=== PATIENT | female | born 1935 | race Caucasian/White ===

== ENCOUNTER 2016-03-13 15:53 | Inpatient (IN) | payer MEDICARE, OTHER ==
[~2016-03-13] VITALS: Ht 162.6 cm; Wt 82.6 kg
--- NOTE | 2016-03-13 17:22 | ECGEPIP ---
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
--- NOTE | 2016-03-13 17:36 | REP ---
Clinical: Cough. Technique: PA and lateral. Comparison: None. Findings: Diffuse chronic interstitial changes with fibrosis and scarring noted bilaterally. Subtle nodular density in the left mid lung zone cannot be excluded. Underlying atelectasis cannot be excluded. No effusion or pneumothorax. Cardiac silhouette is normal. Surgical clips noted in the middle mediastinum. Skeletal structures intact. Impression: Diffuse chronic-appearing interstitial changes with fibrosis and scarring. Subtle left mid lung opacities. No prior exams for comparison and chest CT should be considered for further investigation. Signed by Marcelino Arnold MD 03/13/2016 05:27 P
[2016-03-13] MEDS ORDERED: ACETAMINOPHEN 325 MG TAB As Ordered ONE (17:51)
[2016-03-13 18:01] LABS: BASO % 0.2 % (0.0-1.0); EOS % 0.4 % (0.0-3.0); LARGE UNSTAINED CELL # 0.3 K/mm3 (0.0-0.4); LARGE UNSTAINED CELL % 3.8 % (0.0-4.0); LYMPH # 0.5 K/mm3 (1.5-4.5); LYMPH % 6.2 % (24.0-44.0); MEAN CORPUSCULAR HEMOGLOBIN 30.7 pg (27.0-33.0); MEAN CORPUSCULAR HGB CONC 34.2 g/dl (32.0-36.5); MEAN CORPUSCULAR VOLUME 89.6 fl (80.0-96.0); MONO # 0.4 K/mm3 (0.0-0.8); MONO % 5.1 % (0.0-5.0); NEUTROPHILS # 6.7 K/mm3 (1.8-7.7); NEUTROPHILS % 84.3 % (36.0-66.0); PLATELET COUNT, AUTOMATED 189 k/mm3 (150-450); RED CELL DISTRIBUTION WIDTH 13.1 % (11.5-14.5); WHITE BLOOD COUNT 7.9 K/mm3 (4.0-10.0)
[2016-03-13] MEDS ORDERED: IPRATROPIUM 0.5MG/ALBUTEROL 2.5MG INH SOL UD 3ML (DUONEB)(J7620) As Ordered ONE (18:02)
[2016-03-13 18:32] LABS: CALCIUM LEVEL 9.2 MG/DL (8.8-10.2); CREATININE FOR GFR 1.41 MG/DL (0.55-1.02); POTASSIUM SERUM 4.1 MEQ/L (3.5-5.1)
[2016-03-13] MEDS ORDERED: ONDANSETRON 4MG/2ML VIAL (J2405) IV PRN (19:30)
[2016-03-13] MEDS ORDERED: ALBUTEROL SULFATE 2.5 MG/0.5 ML INH NEB SOLN NEB PRN (19:30)
[2016-03-13] MEDS ORDERED: ASCO500T PO (19:56)
[2016-03-13] MEDS ORDERED: SPIR1CAP INH (19:56)
[2016-03-13] MEDS ORDERED: cefTRIAXone SOD 1 GM VIAL (J0696) As Ordered ONE (19:56)
[2016-03-13] MEDS ORDERED: VERAP80TA PO (19:56)
[2016-03-13] MEDS ORDERED: PREV10CA PO (19:56)
[2016-03-13] MEDS ORDERED: [UNRECOGNIZED DRUG - CODE] PO (19:56)
[2016-03-13] MEDS ORDERED: SPIR25TA2 PO (19:56)
[2016-03-13] MEDS ORDERED: ALBU83IN INH (19:56)
[2016-03-13] MEDS ORDERED: COUM1TAB17 PO (19:56)
[2016-03-13] MEDS ORDERED: VITA-122 PO (19:56)
[2016-03-13] MEDS ORDERED: GUAI1TAB PO (19:56)
[2016-03-13] MEDS ORDERED: ATEN25TA PO (19:56)
[2016-03-13] MEDS ORDERED: TORS20TA2 PO (19:56)
[2016-03-13] MEDS ORDERED: B COTAB3 PO (19:56)
[2016-03-13] MEDS ORDERED: COUM2.5T11 PO (19:56)
[2016-03-13] MEDS ORDERED: ADV250INH INH (19:56)
[2016-03-13] MEDS ORDERED: VITMTA PO (19:56)
[2016-03-13] MEDS ORDERED: POTA20TA PO (19:56)
[2016-03-13] MEDS ORDERED: FUROSEMIDE 20 MG/2 ML VIAL (J1940) As Ordered ONE (19:57)
[2016-03-13] MEDS ORDERED: methylPREDNISolone INJ 125 MG/2 ML VIAL (J2930) As Ordered ONE (19:57)
[2016-03-13] MEDS ORDERED: OMEP20CA3 PO (19:58)
[2016-03-13] MEDS: IPRATROPIUM 0.5MG/ALBUTEROL 2.5MG INH SOL UD 3ML (DUONEB)(J7620) NEB SCH (20:00)
[2016-03-13] MEDS ORDERED: ACETAMINOPHEN 500 MG TAB PO PRN (20:15)
[2016-03-13 20:40] LABS: ABG DEVICE NASAL CANN; ABG HCO3 23.8 MEQ/L (22.0-26.0); ABG PARTIAL PRESSURE CO2 32.4 mmHg (35.0-45.0); ABG STANDARD HCO3 25.4 MEQ/L (22.0-26.0); ABG TOTAL CO2 24.7 MEQ/L (23.0-31.0); ABG pH (ARTERIAL) 7.483 UNITS (7.350-7.450)
[2016-03-13 20:41] LABS: ABG PARTIAL PRESSURE O2 133.5 mmHg (75.0-100.0)
[2016-03-13] MEDS: ADVAIR DISKUS 250/50 INH PWD INH SCH (21:00)
[2016-03-13] MEDS ORDERED: DOXYCYCLINE HYCLATE 100 MG TAB PO SCH (21:00)
[2016-03-13] MEDS ORDERED: AZITHROMYCIN INJ 500MG VIAL (J0456) As Ordered ONE (21:18)
[2016-03-13] MEDS ORDERED: ONDANSETRON 4MG/2ML VIAL (J2405) As Ordered ONE (21:51)
--- NOTE | 2016-03-13 22:33 | EDDOCDS ---
Physician Documentation [facility] Name: Maude Ward Age: 80 yrs Sex: Female : 1935 Arrival Date: 03/13/2016 Time: 15:53 Bed 18 Private MD: Unknown, Family Dr Disposition: 03/13/16 19:16 Hospitalization ordered by Thu Anderson for Inpatient Admission. Preliminary diagnosis is Chronic obstructive pulmonary disease with acute lower respiratory infection. - [facility] - Status is Inpatient Admission. jp6 - Condition is Stable. - Problem is new. - Symptoms are unchanged. Historical: - Allergies: No known drug Allergies; - Home Meds: 1. Spiriva with HandiHaler 18 mcg Inhl CpDv 1 cap once daily (Last dose: 03/12/2016 17:00) 2. Mucinex 600 mg oral Ta12 2 tabs every 12 hours (Last dose: 03/13/2016 11:00) 3. albuterol sulfate 2.5 mg /3 mL (0.083 %) Nebulizer nebu 4 times per day (Last dose: 03/13/2016 12:00) 4. Advair Diskus 250-50 mcg/dose Inhl dsdv 1 puff 2 times per day (Last dose: 03/13/2016 10:00) 5. atenolol 25 mg Oral tab bedtime (Last dose: 03/12/2016) 6. spironolactone 25 mg Oral tab 1 tab once daily (Last dose: 03/13/2016 11:00) 7. verapamil 80 mg Oral tab 1 tab 3 times per day (Last dose: 03/13/2016 10:00) 8. warfarin 5 mg Oral tab 1 tab once daily everyday but fri and sun 9. warfarin 2.5 mg Oral tab 1 tab once daily fri and sun 10. klor con20 three times a day (Last dose: 03/13/2016 10:00) 11. omeprazole 20 mg Oral cpDR 1 cap 2 times per day (Last dose: 03/13/2016 10:00) 12. torsemide 20 mg oral tab 2 tabs once daily (Last dose: 03/13/2016 10:00) 13. prevagen D 10MG daily (Last dose: 03/13/2016 10:00) - PMHx: afib; Emphysema; RIGHT LUNG CANCER; GERD; - PSHx: RIGHT LOBECTOMY; Cholecystectomy; Tonsillectomy; KNEE REPLACEMENT; - Social history: Smoking status: Patient states former smoker of tobacco. No barriers to communication noted, The patient speaks fluent Luxembour[place], Speaks appropriately for age. - Family history: Not pertinent. - : The pt / caregiver states he / she is on anticoagulants: coumadin. Home medication list is obtained from the patient. - Exposure Risk Screening:: None identified. Vital Signs: 03/13 15:55 BP 143 / 77; Pulse 112; Resp 20 S; Temp 101.0(O); Pulse Ox 95% on R/A; Weight 83.91 kg dd6 / 184.99 lbs (R); Height 5 ft. 4 in. (162.56 cm) (R); 19:03 BP 126 / 62 (auto/); jp6 19:03 Pulse 120 MON; Pulse Ox 96% ; jp6 19:18 BP 122 / 64 (auto/); jp6 19:19 Pulse 122 MON; Pulse Ox 96% ; jp6 19:48 BP 122 / 67 (auto/); jp6 19:48 Pulse 114 MON; Pulse Ox 95% ; jp6 20:03 BP 110 / 58 (auto/); jp6 20:03 Pulse 114 MON; Pulse Ox 96% ; jp6 20:18 BP 131 / 89 (auto/); jp6 20:18 Pulse 120 MON; Pulse Ox 96% ; jp6 20:18 Resp 22; Temp 100.5(O); Pain 0/10; jp6 20:38 Pulse 112 MON; Pulse Ox 95% ; jp6 20:50 Pulse 114 MON; Pulse Ox 96% ; jp6 21:14 Pulse 110 MON; Pulse Ox 97% ; jp6 21:28 Pulse 110 MON; Pulse Ox 96% ; jp6 21:33 BP 122 / 66; Pulse 109; Resp 20; Temp 100.5; Pulse Ox 97% on 2 lpm NC; Pain 0/10; jp6 15:55 Body Mass Index 31.75 (83.91 kg, 162.56 cm) dd6 MDM: 17:03 -Blood Culture (Adults Only), peripheral from different site, or from device/port/PICC sd1 etc. if present ordered. 17:03 Stonecutter Hand/Pulse Ox/q 15 min VS ordered. sd1 17:03 IV Saline Lock ordered. sd1 17:03 Oxygen at 4L/Min NC or Home dosage ordered. sd1 17:03 Rhythm Strip to chart ordered. sd1 17:04 -Blood Culture Ordered. EDMS 17:04 B-Type Natiuretic Peptide Ordered. EDMS 17:04 Basic Metabolic Profile Ordered. EDMS 17:04 CBC with Diff Ordered. EDMS 17:04 Lactic Acid (García tube on ice) Ordered. EDMS 17:05 ECG WITH READING ER PHYS+CARDIAG ordered. EDMS 17:06 -Blood Culture (Adults Only), peripheral from different site, or from device/port/PICC lbd etc. if present complete. 17:06 Chest, 2 View (pa\E\lat) Ordered. EDMS 17:09 BLOOD CULTURES Ordered. EDMS 17:15 Acetaminophen Tablet 650 mg PO once ordered. sd1 17:17 -Influenza A&B Rapid Antigen - Nose Ordered. EDMS 17:44 Albuterol-Ipratropium 3 ml Inhalation once ordered. sd1 17:44 Call Respiratory ordered. sd1 17:45 Call Respiratory complete. lbd 18:15 CBC with Diff Reviewed. sd1 18:15 Chest, 2 View (pa\E\lat) Reviewed. sd1 18:15 EKG-ADULT Reviewed. sd1 18:21 [facility] Agreement was scanned into [employer] and attached to record. gjb 18:21 Financial registration complete. gjb 18:58 B-Type Natiuretic Peptide Reviewed. sd1 18:58 Basic Metabolic Profile Reviewed. sd1 18:58 Lactic Acid (García tube on ice) Reviewed. sd1 18:58 -Influenza A&B Rapid Antigen - Nose Reviewed. sd1 19:04 Solu-MEDROL 125 mg IVP once ordered. sd1 19:04 cefTRIAXone 1 grams IVPB once over 30 mins; dilute in 50mL of NS or D5W ordered. sd1 19:05 azithromycin 500 mg IVPB once over 1 hrs; dilute in 250mL of D5W or NS ordered. sd1 19:05 Misc. Nursing Order ordered. sd1 19:12 Furosemide 20 mg IVP once ordered. sd1 19:13 BED REQUEST+ADM ordered. EDMS 19:15 Call Respiratory ordered. sd1 19:17 -Arterial Blood Gas Ordered. EDMS 19:28 Admission / Observation Status ordered. EDMS 19:28 OTHER CUSTOM DIETS ordered. EDMS 19:32 CBC WITH DIFFERENTIAL Ordered. EDMS 19:33 BASIC METABOLIC PROFILE Ordered. EDMS 19:47 Call Respiratory complete. tmm1 20:15 PROTHROMBIN TIME PROFILE\E\INR Ordered. EDMS Administered Medications: 18:01 Drug: Acetaminophen 650 mg [acetaminophen 325 mg tablet (2 tabs)] Route: PO; jmb 18:05 Drug: Albuterol-Ipratropium 3 ml [ipratropium-albuterol 0.5 mg-3 mg(2.5 mg base)/3 mL [facility] nebulization soln (3 mL)] Route: Inhalation; 20:00 Drug: Solu-MEDROL 125 mg [Solu-Medrol 500 mg intravenous solution (125 mg)] Route: IVP; jp6 Site: left antecubital; 20:00 Drug: cefTRIAXone 1 grams [ceftriaxone 1 gram solution for injection] Route: IVPB; jp6 Infused Over: 30 mins; Site: left antecubital; 20:00 Drug: Furosemide 20 mg [furosemide 10 mg/mL injection solution (2 mL)] Route: IVP; jp6 Site: left antecubital; 21:34 Drug: azithromycin 500 mg [azithromycin 500 mg intravenous solution] Route: IVPB; kas2 Infused Over: 1 hrs; Site: left antecubital; Signatures: Dispatcher [employer] EDHI Kerry Painting MD MD sd1 Daly, Linda, Folding [employer] Fe[employer] lbd Arleth Milligan RN RN [facility] LALITA Ortiz RN daq McLear, Tomasa, HYDROPULPER HYDROPULPER tmm1 Karlene Patel Jessica, RN RN jp6 Hollis, Jacob jh6 Becker, Joshua RN jmb Smith, Kim RN kas2 The chart was reviewed and I authenticate all verbal orders and agree with the evaluation and treatment provided.Corrections: (The following items were deleted from the chart) 20:20 17:09 BLOOD CULTURES ordered. EDMS EDMS Attachments: 18:21 [facility] Payment Agreement sheldon MTDD
--- NOTE | 2016-03-13 22:33 | EDDOCDS ---
Nurse's Notes [facility] Name: Maude Ward Age: 80 yrs Sex: Female : 1935 Arrival Date: 03/13/2016 Time: 15:53 Bed 18 Private MD: Unknown, Family Dr Diagnosis: Chronic obstructive pulmonary disease with acute lower respiratory infection Presentation: 03/13 16:06 Presenting complaint: Patient states: feeling sick - coughing productive cough, chest srm hurts when coughs. went to [facility] urgent care and sent here for r/o pneumonia. symptoms for Wednesday. Adult Sepsis Screening: The patient does not have new or worsening altered mentation. Patient has a respiratory rate of greater than or equal to 22 (1 point). Systolic blood pressure is greater than 100. Patient has a qSOFA score of 0- Negative Sepsis Screen. Suicide/Homicide risk assessment- the patient denies having any suicidal and/or homicidal ideations and does not present with any other emotional, behavioral or mental health complaints. 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 Transition of care: Patient was received from [facility]. 16:06 Method Of Arrival: Walkin/Carried/Asstd [facility] 16:06 Acuity: ANNABEL Level 3 srm Triage Assessment: 16:15 General: Appears in no apparent distress, Behavior is appropriate for age, cooperative. srm Pain: Pain currently is 0 out of 10 on a pain scale. At worst was 7 out of 10 on a pain scale. Respiratory: Onset: The symptoms/episode began/occurred gradually. Historical: - Allergies: No known drug Allergies; - Home Meds: 1. Spiriva with HandiHaler 18 mcg Inhl CpDv 1 cap once daily (Last dose: 03/12/2016 17:00) 2. Mucinex 600 mg oral Ta12 2 tabs every 12 hours (Last dose: 03/13/2016 11:00) 3. albuterol sulfate 2.5 mg /3 mL (0.083 %) Nebulizer nebu 4 times per day (Last dose: 03/13/2016 12:00) 4. Advair Diskus 250-50 mcg/dose Inhl dsdv 1 puff 2 times per day (Last dose: 03/13/2016 10:00) 5. atenolol 25 mg Oral tab bedtime (Last dose: 03/12/2016) 6. spironolactone 25 mg Oral tab 1 tab once daily (Last dose: 03/13/2016 11:00) 7. verapamil 80 mg Oral tab 1 tab 3 times per day (Last dose: 03/13/2016 10:00) 8. warfarin 5 mg Oral tab 1 tab once daily everyday but fri and sun 9. warfarin 2.5 mg Oral tab 1 tab once daily fri and sun 10. klor con20 three times a day (Last dose: 03/13/2016 10:00) 11. omeprazole 20 mg Oral cpDR 1 cap 2 times per day (Last dose: 03/13/2016 10:00) 12. torsemide 20 mg oral tab 2 tabs once daily (Last dose: 03/13/2016 10:00) 13. prevagen D 10MG daily (Last dose: 03/13/2016 10:00) - PMHx: afib; Emphysema; RIGHT LUNG CANCER; GERD; - PSHx: RIGHT LOBECTOMY; Cholecystectomy; Tonsillectomy; KNEE REPLACEMENT; - Social history: Smoking status: Patient states former smoker of tobacco. No barriers to communication noted, The patient speaks fluent Armenian, Speaks appropriately for age. - Family history: Not pertinent. - : The pt / caregiver states he / she is on anticoagulants: coumadin. Home medication list is obtained from the patient. - Exposure Risk Screening:: None identified. Screenin:18 Screening information is obtained from the patient. Fall risk: At risk due to age, gait jp6 disturbance. Assistance ADL's: requires no assistance with activities of daily living. Abuse/DV Screen: The patient / caregiver reports he/she is: not in a situation that causes fear, pain or injury. Nutritional screening: No deficits noted. home support is adequate. 20:18 Advance Directives: Currently, there is a health care proxy, SON Mynor Ward. There is jp6 no active DNR order. There is no living will. Assessment: 18:02 General: Appears in no apparent distress, comfortable, Behavior is appropriate for age, jmb cooperative, Patient laying on stretcher, appears comfortable. Son at bedside. No voiced complaints at this time. . Neurological: Level of Consciousness is awake, alert, obeys commands, Oriented to person, place, time, Speech is normal, Facial symmetry appears normal, Facial symmetry: tongue is midline. Respiratory: Airway is patent Respiratory effort is even, Respiratory pattern is regular. 20:21 Reassessment: Patient appears in no apparent distress at this time. Patient states jp6 symptoms have improved. General: Appears in no apparent distress, comfortable, well developed, well nourished, Behavior is appropriate for age, cooperative. Pain: Denies pain. Neurological: Level of Consciousness is awake, alert, Oriented to person, place, time. EENT: No deficits noted. Cardiovascular: Capillary refill < 3 seconds Rhythm is sinus tachycardia No ectopy. Respiratory: Airway is patent Respiratory effort is even, labored, Respiratory pattern is regular, symmetrical, Breath sounds with wheezes inspiratory expiratory bilaterally. GI: No deficits noted. Abdomen is flat, Bowel sounds present X 4 quads. : No deficits noted. Derm: Skin is intact, Skin is dry, Skin is flushed, Skin temperature is warm. Musculoskeletal: No deficits noted. 21:29 Reassessment: Patient appears in no apparent distress at this time. Pain: Denies pain. jp6 Cardiovascular: Rhythm is sinus tachycardia No ectopy. Respiratory: Airway is patent Respiratory effort is even, labored, Respiratory pattern is regular, symmetrical. Derm: Skin is flushed. Vital Signs: 15:55 BP 143 / 77; Pulse 112; Resp 20 S; Temp 101.0(O); Pulse Ox 95% on R/A; Weight 83.91 kg dd6 (R); Height 5 ft. 4 in. (162.56 cm) (R); 19:03 BP 126 / 62 (auto/); jp6 19:03 Pulse 120 MON; Pulse Ox 96% ; jp6 19:18 BP 122 / 64 (auto/); jp6 19:19 Pulse 122 MON; Pulse Ox 96% ; jp6 19:48 BP 122 / 67 (auto/); jp6 19:48 Pulse 114 MON; Pulse Ox 95% ; jp6 20:03 BP 110 / 58 (auto/); jp6 20:03 Pulse 114 MON; Pulse Ox 96% ; jp6 20:18 BP 131 / 89 (auto/); jp6 20:18 Pulse 120 MON; Pulse Ox 96% ; jp6 20:18 Resp 22; Temp 100.5(O); Pain 0/10; jp6 20:38 Pulse 112 MON; Pulse Ox 95% ; jp6 20:50 Pulse 114 MON; Pulse Ox 96% ; jp6 21:14 Pulse 110 MON; Pulse Ox 97% ; jp6 21:28 Pulse 110 MON; Pulse Ox 96% ; jp6 21:33 BP 122 / 66; Pulse 109; Resp 20; Temp 100.5; Pulse Ox 97% on 2 lpm NC; Pain 0/10; jp6 15:55 Body Mass Index 31.75 (83.91 kg, 162.56 cm) dd6 Vitals: 15:55 Log In Time: March 13, 2016 at 15:53. dd6 ED Course: 15:54 Patient visited by Prudencio Edmonds PCA. dd6 15:54 Patient moved to Waiting dd6 15:55 Unknown, Family Dr is Private Physician. dd6 15:56 Patient moved to Pre RCE dd6 16:07 Triage Initiated srm 16:22 Carl Carter, RN is Primary Nurse. srm 16:22 Patient moved to 18 srm 16:25 Patient visited by Lynnette Reyna PCA. jlf 16:34 Kerry Painting MD is Attending Physician. sd1 16:56 Patient visited by Kerry Painting MD. sd1 17:13 Patient visited by Lynnette Reyna PCA. jlf 17:13 EKG done. (by ED staff). Reviewed by Kerry Painting MD. jlf 17:49 -Blood Culture Sent. jmb 17:49 B-Type Natiuretic Peptide Sent. jmb 17:49 Basic Metabolic Profile Sent. jmb 17:49 CBC with Diff Sent. jmb 18:02 -Influenza A&B Rapid Antigen - Nose Sent. jmb 18:02 BLOOD CULTURES Sent. jmb 18:02 Lactic Acid (García tube on ice) Sent. jmb 18:03 Patient visited by Jose L Valera RN. jmb 18:07 EKG-ADULT Returned. EDMS 18:12 Chest, 2 View (pa\E\lat) Returned. EDMS 18:21 [facility] Payment Agreement was scanned into [employer] and attached to record. gjb 18:28 Patient visited by Lynnette Reyna PCA. jlf 18:30 Patient name changed from Maude\S\\S\Walker\S\ to Maude\S\Mabel\S\Walker. EDMS 19:03 Primary Nurse role handed off by Carl Carter, RN jp6 19:03 Esperanza Lorenz,RN is Primary Nurse. jp6 19:16 Thu Anderson is Hospitalizing Provider. sd1 20:15 Side rails up X2. Door closed. Head of bed Elevated. Diet tray given. Diet:. jlm 20:16 Patient visited by Mica Glover, Operations Support Manager. jl 20:18 The patient / caregiver is instructed regarding the plan of care and ED course. Cardiac jp6 monitor on. Pulse ox on. NIBP on. 20:18 Inserted saline lock: 20 gauge in left antecubital area. No procedures done that jp6 require assistance. O2 via nasal cannula \T\ 2L/min. 20:27 -Arterial Blood Gas Sent. jc3 Administered Medications: 18:01 Drug: Acetaminophen 650 mg [acetaminophen 325 mg tablet (2 tabs)] Route: PO; jmb 18:05 Drug: Albuterol-Ipratropium 3 ml [ipratropium-albuterol 0.5 mg-3 mg(2.5 mg base)/3 mL jh6 nebulization soln (3 mL)] Route: Inhalation; 20:00 Drug: Solu-MEDROL 125 mg [Solu-Medrol 500 mg intravenous solution (125 mg)] Route: IVP; jp6 Site: left antecubital; 20:00 Drug: cefTRIAXone 1 grams [ceftriaxone 1 gram solution for injection] Route: IVPB; jp6 Infused Over: 30 mins; Site: left antecubital; 20:00 Drug: Furosemide 20 mg [furosemide 10 mg/mL injection solution (2 mL)] Route: IVP; jp6 Site: left antecubital; 21:34 Drug: azithromycin 500 mg [azithromycin 500 mg intravenous solution] Route: IVPB; kas2 Infused Over: 1 hrs; Site: left antecubital; RT: 18:05 Initial Med Neb Given as ordered Patient was instructed and evaluated on procedure jh6 Patient tolerated procedure well without adverse effect. Respiratory: Airway is patent Respiratory effort is even, unlabored, Respiratory pattern is regular symmetrical, Breath sounds with rhonchi in right upper lobe, left upper lobe and right middle lobe Breath sounds are diminished in right upper lobe, left upper lobe, right middle lobe, left lower lobe and right lower lobe Breath sounds with wheezes in right upper lobe, left upper lobe and right middle lobe at expiration Reports cough that is productive. 20:27 ABG's drawn from right radial artery pressure held for 5 minutes no bleeding noted jc3 pressure bandage applied specimen sent pt. tolerated well. Order Results: Lab Order: B-Type Natiuretic Peptide; SPEC'M 03/13/16 17:47 Test: BRAIN NATRIURETIC PEPTIDE; Value: 708; Range: <100; Abnormal: Above high normal; Units: PG/ML; Status: F Lab Order: Basic Metabolic Profile; SPEC'M 03/13/16 17:47 Test: GLUCOSE, FASTING; Value: 113; Range: 83-110; Abnormal: Above high normal; Units: MG/DL; Status: F Test: BLOOD UREA NITROGEN; Value: 17; Range: 7-18; Units: MG/DL; Status: F Test: CREATININE FOR GFR; Value: 1.41; Range: 0.55-1.02; Abnormal: Above high normal; Units: MG/DL; Status: F Test: GLOMERULAR FILTRATION RATE; Value: 38.0; Range: >32; Status: F Test: SODIUM LEVEL; Value: 134; Range: 136-145; Abnormal: Below low normal; Units: MEQ/L; Status: F Test: POTASSIUM SERUM; Value: 4.1; Range: 3.5-5.1; Units: MEQ/L; Status: F Test: CHLORIDE LEVEL; Value: 97; Range: 98-107; Abnormal: Below low normal; Units: MEQ/L; Status: F Test: CARBON DIOXIDE LEVEL; Value: 28; Range: 21-32; Units: MEQ/L; Status: F Test: ANION GAP; Value: 9; Range: 8-16; Units: MEQ/L; Status: F Test: CALCIUM LEVEL; Value: 9.2; Range: 8.8-10.2; Units: MG/DL; Status: F Test Note: ; Units are mL/min/1.73 m2 Chronic Kidney Disease Staging per NKF: Stage I & II GFR >=60 Normal to Mildly Decreased Stage III GFR 30-59 Moderately Decreased Stage IV GFR 15-29 Severely Decreased Stage V GFR <15 Very Little GFR Left ESRD GFR <15 on WIRE INSPECTOR Lab Order: CBC with Diff; SPEC'M 03/13/16 17:47 Test: WHITE BLOOD COUNT; Value: 7.9; Range: 4.0-10.0; Units: K/mm3; Status: F Test: RED BLOOD COUNT; Value: 4.50; Range: 4.00-5.40; Units: M/mm3; Status: F Test: HEMOGLOBIN; Value: 13.8; Range: 12.0-16.0; Units: g/dl; Status: F Test: HEMATOCRIT; Value: 40.3; Range: 36.0-47.0; Units: %; Status: F Test: MEAN CORPUSCULAR VOLUME; Value: 89.6; Range: 80.0-96.0; Units: fl; Status: F Test: MEAN CORPUSCULAR HEMOGLOBIN; Value: 30.7; Range: 27.0-33.0; Units: pg; Status: F Test: MEAN CORPUSCULAR HGB CONC; Value: 34.2; Range: 32.0-36.5; Units: g/dl; Status: F Test: RED CELL DISTRIBUTION WIDTH; Value: 13.1; Range: 11.5-14.5; Units: %; Status: F Test: PLATELET COUNT, AUTOMATED; Value: 189; Range: 150-450; Units: k/mm3; Status: F Test: NEUTROPHILS %; Value: 84.3; Range: 36.0-66.0; Abnormal: Above high normal; Units: %; Status: F Test: LYMPH %; Value: 6.2; Range: 24.0-44.0; Abnormal: Below low normal; Units: %; Status: F Test: MONO %; Value: 5.1; Range: 0.0-5.0; Abnormal: Above high normal; Units: %; Status: F Test: EOS %; Value: 0.4; Range: 0.0-3.0; Units: %; Status: F Test: BASO %; Value: 0.2; Range: 0.0-1.0; Units: %; Status: F Test: LARGE UNSTAINED CELL %; Value: 3.8; Range: 0.0-4.0; Units: %; Status: F Test: NEUTROPHILS #; Value: 6.7; Range: 1.8-7.7; Units: K/mm3; Status: F Test: LYMPH #; Value: 0.5; Range: 1.5-4.5; Abnormal: Below low normal; Units: K/mm3; Status: F Test: MONO #; Value: 0.4; Range: 0.0-0.8; Units: K/mm3; Status: F Test: EOS #; Value: 0.0; Range: 0.0-0.50; Units: K/mm3; Status: F Test: BASO #; Value: 0.0; Range: 0.0-0.2; Units: K/mm3; Status: F Test: LARGE UNSTAINED CELL #; Value: 0.3; Range: 0.0-0.4; Units: K/mm3; Status: F Lab Order: Lactic Acid (García tube on ice); SPEC'M 03/13/16 17:58 Test: LACTIC ACID LEVEL, LACTATE; Value: 1.0; Range: 0.4-2.0; Units: MMOL/L; Status: F Lab Order: -Influenza A&B Rapid Antigen - Nose; SPEC'M 03/13/16 17:58 Test: INFLUENZA A RAPID SCR by ICA; Value: INFLUENZA A RESULTS NEGATIVE; Status: F Test: INFLUENZA A RAPID SCR by ICA; Value: Comments:; Status: F Test: INFLUENZA B RAPID SCR by ICA; Value: INFLUENZA B RESULTS NEGATIVE; Status: F Test Note: ; The Influenza test is a direct rapid immunoassay for the qualitative detection of Influenza viral antigen. Cell culture (Viral Culture) testing should be considered to confirm NEGATIVE results and to assist in detecting other viruses that can provide similar clinical symptoms. Please contact the lab within 24 hours ([phone]) if confirmatory testing is desired. Lab Order: -Arterial Blood Gas; SPEC'M 03/13/16 20:24 Test: ABG pH (ARTERIAL); Value: 7.483; Range: 7.350-7.450; Abnormal: Above high normal; Units: UNITS; Status: F Test: ABG PARTIAL PRESSURE CO2; Value: 32.4; Range: 35.0-45.0; Abnormal: Below low normal; Units: mmHg; Status: F Test: ABG PARTIAL PRESSURE O2; Value: 133.5; Range: 75.0-100.0; Abnormal: Above high normal; Units: mmHg; Status: F Test: ABG TOTAL CO2; Value: 24.7; Range: 23.0-31.0; Units: MEQ/L; Status: F Test: ABG HCO3; Value: 23.8; Range: 22.0-26.0; Units: MEQ/L; Status: F Test: ABG BASE EXCESS; Value: 1.0; Range: -2.0-2.0; Status: F Test: ABG STANDARD HCO3; Value: 25.4; Range: 22.0-26.0; Units: MEQ/L; Status: F Test: ABG O2 SATURATION; Value: 99.0; Range: 95.0-99.0; Units: %; Status: F Test: ABG DEVICE; Value: NASAL CHANI; Status: F Test Note: ; AIR BUBBLE AT TOP OF SYRINGE Radiology Order: Chest, 2 View (pa\E\lat) Test: Chest, 2 View (pa\E\lat) REASON FOR EXAMINATION: Cough; Clinical: Cough.; ; Technique: PA and lateral.; ; Comparison: None.; ; Findings:; Diffuse chronic interstitial changes with fibrosis and scarring noted; bilaterally. Subtle nodular density in the left mid lung zone cannot be; excluded. Underlying atelectasis cannot be excluded. No effusion or; pneumothorax. Cardiac silhouette is normal. Surgical clips noted in the middle; mediastinum. Skeletal structures intact.; ; Impression:; Diffuse chronic-appearing interstitial changes with fibrosis and scarring.; Subtle left mid lung opacities.; No prior exams for comparison and chest CT should be considered for further; investigation.; ; ; Signed by; Marcelino Arnold MD 03/13/2016 05:27 P; Radiology Order: EKG-ADULT Test: EKG-ADULT REASON FOR EXAMINATION: Cough; Stationary ECG Study; 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 sd1 21:32 Discharge Assessment: Patient awake, alert and oriented x 3. No cognitive and/or jp6 functional deficits noted. Patient verbalized understanding of disposition instructions. patient administered narcotics - no. The following High Risk Discharge criteria are identified: None. Admitted to PCU accompanied by nurse, accompanied by tech, via stretcher, with oxygen, on monitor, with chart. Condition: unchanged. No special radiology studies were completed. Property :Personal belongings accompany Pt. 22:32 Patient left the ED. jp6 Signatures: Dispatcher [employer] EDMS Kerry Painting MD MD sd1 Arleth Milligan, RN RN Keron George jc3 Prudencio Edmonds, SENIOR VALIDATION ENGINEER SENIOR VALIDATION ENGINEER dd6 Jimmie Negron jh6 Jose L Valera,RN Lynnette Paulino, SENIOR VALIDATION ENGINEER SENIOR VALIDATION ENGINEER jlf Mica Glover, Operations Support Manager Unit Karlene Craig Kim,RN RN kas2 Esperanza Lorenz,RN RN jp6 Corrections: (The following items were deleted from the chart) 20:20 17:49 BLOOD CULTURES sent. miller LYONS MTDD
[2016-03-13 22:45] VITALS: BP 111/69
[2016-03-13] MEDS: ATENOLOL 25 MG TAB PO SCH (22:54)
[2016-03-13] MEDS: VERAPAMIL 80 MG TAB PO SCH (22:54)
[2016-03-13] MEDS: SENOKOT S TAB PO SCH (22:55)
[2016-03-13] MEDS: guaiFENesin ER 600 MG TAB PO SCH (22:55)
[2016-03-14] MEDS: IPRATROPIUM 0.5MG/ALBUTEROL 2.5MG INH SOL UD 3ML (DUONEB)(J7620) NEB SCH ×4 (01:34→22:12)
[2016-03-14 04:00] VITALS: BP 108/71
[2016-03-14 05:40] LABS: BASO % 0.1 % (0.0-1.0); EOS % 0.2 % (0.0-3.0); LARGE UNSTAINED CELL # 0.1 K/mm3 (0.0-0.4); LYMPH # 0.5 K/mm3 (1.5-4.5); LYMPH % 5.7 % (24.0-44.0); MEAN CORPUSCULAR HEMOGLOBIN 30.6 pg (27.0-33.0); MEAN CORPUSCULAR HGB CONC 33.9 g/dl (32.0-36.5); MEAN CORPUSCULAR VOLUME 90.4 fl (80.0-96.0); MONO # 0.2 K/mm3 (0.0-0.8); NEUTROPHILS # 8.2 K/mm3 (1.8-7.7); NEUTROPHILS % 91.1 % (36.0-66.0); PLATELET COUNT, AUTOMATED 178 k/mm3 (150-450); RED CELL DISTRIBUTION WIDTH 13.1 % (11.5-14.5)
--- NOTE | 2016-03-14 05:40 | HPE ---
DATE OF ADMISSION: 03/13/2016 PRIMARY CARE PROVIDER: Dr. Patria Stubbs at [place], [place]. SERVICE ARCHITECT: Dr. Marcelino Díaz at [place], [place]. CHIEF COMPLAINT: Increasing chest congestion, cough and shortness of breath for 2 days. PAST MEDICAL HISTORY: 1. Chronic obstructive pulmonary disease (COPD) on home oxygen. 2. Chronic hypoxic respiratory failure. 3. Atrial fibrillation on Coumadin. 4. Gastroesophageal reflux disease (GERD). 5. History of right-sided lung cancer in 2006, was treated by surgery and chemotherapy. 6. Hypertension. 7. History of chronic leg edema. HISTORY OF PRESENT ILLNESS: This is an 80-year-old female who is visiting from [place] and is at present staying with her son. She came up here 5 days ago and for the past 3 days she started feeling chest congestion, increasing cough, chest pain during coughing and from yesterday nasal congestion and some nasal discharge with worsening shortness of breath and so went to the urgent care today and was sent to the emergency room for evaluation for pneumonia. On arrival to emergency department (ED), patient was febrile to 101. Patient was in atrial fibrillation with a pulse rate of 112. Pulse oximetry was 95% in room air. Respiratory rate was 20. Her blood pressure was 143/77. In the ED, her temperature increased to 102. Chest x-ray done showed chronic interstitial changes with fibrosis and scarring and subtle left mid lung opacities. After nebulizers and antibiotics, patient still continued to feel sick, so the hospitalist service was consulted for admission for COPD exacerbation, community-acquired pneumonia, and atrial fibrillation with rapid ventricular response (RVR). PAST SURGICAL HISTORY: 1. Right partial lobectomy for lung cancer. 2. Cholecystectomy. 3. Left-sided total knee replacement. 4. Tonsillectomy. ALLERGIES: No known allergies. SOCIAL HISTORY: Patient is an ex-smoker, quit about 20 years ago. Does not abuse alcohol or recreational drugs. HOME MEDICATIONS: - albuterol sulfate one nebulizer four times a day - ascorbic acid 500 mg daily - atenolol 25 mg at bedtime - vitamin B complex one tablet by mouth daily - cholecalciferol 1000 units by mouth daily - guaifenesin 600 mg tablet one twice a day - multivitamins one tablet daily - omeprazole 20 mg twice a day - potassium chloride 20 mg three times a day - Prevagen 10 mg by mouth daily - salmeterol fluticasone 250/50 one puff twice a day - selenium 200 mg by mouth daily - spironolactone 25 mg three times a week Wednesday, Wednesday and Wednesday - Spiriva one inhalation daily - torsemide 20 mg daily - verapamil 80 mg by mouth three times a day - Coumadin 5 mg five times a week Wednesday, Wednesday, Wednesday, and Wednesday - warfarin 2.5 mg twice a week on Wednesday and Wednesday REVIEW OF SYSTEMS: Patient denied any fevers or chills at home. Denies any chest pain or palpitations. Denied any abdominal pain, nausea, vomiting, or diarrhea. Denied any dysuria or difficulty with urination. All other review of systems is negative except those mentioned in history of present illness (HPI). PHYSICAL EXAMINATION: VITAL SIGNS: Blood pressure 143/77, pulse 120, respiratory rate 20, temperature 100.8, pulse oximetry 95% in room air. GENERAL: Patient awake, alert, oriented times three, lying down in bed in no acute distress. HEENT: Normocephalic, atraumatic. Moist mucous membranes. Anicteric eyes. CHEST: Anteriorly clear to auscultation. Posteriorly coarse breath sounds with some wheezing. CARDIOVASCULAR: S1, S2 irregular. No rub, murmur or gallop. ABDOMEN: Soft, nontender, bowel sounds present, normal. EXTREMITIES: There is 1+ edema in both the lower extremities. LABORATORY DATA: WBC 7.9, hemoglobin 13.8, platelets 189. Sodium 134, potassium 4.1, chloride 97, bicarbonate 28, BUN 70, creatinine 1.41, glucose 113. BNP 708, lactic acid 1. Calcium 9.2. Blood cultures have been ordered. Influenza antigen is negative. ASSESSMENT AND PLAN: This is an 80-year-old female admitted for community-acquired pneumonia, chronic obstructive pulmonary disease (COPD) exacerbation, atrial fibrillation with rapid ventricular response. PLAN: 1. For community-acquired pneumonia, will continue with ceftriaxone and azithromycin. 2. For COPD exacerbation, we will continue with nebulizers four times a day. Will continue with Advair and Spiriva. 3. Atrial fibrillation with RVR, will continue with home medications verapamil and atenolol. Patient missed this afternoon some medication. 4. Acute kidney injury versus chronic kidney disease. Patient's creatinine is elevated to 1.4 and we do not have any previous record, unknown whether this is acute or chronic. Will continue to monitor. 5. Hypertension. Will continue with verapamil and atenolol. 6. Gastroesophageal reflux disease (GERD). Will continue with proton pump inhibitor (PPI). 7. Anticoagulation with Coumadin. 8. Gastrointestinal (GI) prophylaxis has been noted. 9. Deep venous thrombosis (DVT) prophylaxis with Coumadin
[2016-03-14 05:47] LABS: INR 1.95
[2016-03-14 05:50] LABS: CALCIUM LEVEL 9.2 MG/DL (8.8-10.2); CREATININE FOR GFR 1.62 MG/DL (0.55-1.02); GLOMERULAR FILTRATION RATE 32.4 (>32); POTASSIUM SERUM 4.4 MEQ/L (3.5-5.1)
[2016-03-14] MEDS: TIOTROPIUM INHALER/CAPSULE (SPIRIVA) INH SCH (07:31)
[2016-03-14] MEDS: ADVAIR DISKUS 250/50 INH PWD INH SCH ×2 (07:31→19:51)
[2016-03-14 08:00] VITALS: BP 103/59
[2016-03-14] MEDS ORDERED: ENOXAPARIN 30 MG/0.3 ML SYR (J1650) SC SCH (09:00)
[2016-03-14] MEDS: SENOKOT S TAB PO SCH ×2 (09:33→21:22)
[2016-03-14] MEDS: PANTOPRAZOLE 40MG TAB (PROTONIX) PO SCH (09:33)
[2016-03-14] MEDS: TORSEMIDE 20 MG TAB PO SCH (09:33)
[2016-03-14] MEDS: AZITHROMYCIN 250 MG TAB PO SCH (09:33)
[2016-03-14] MEDS: guaiFENesin ER 600 MG TAB PO SCH ×2 (09:33→21:22)
[2016-03-14] MEDS: VERAPAMIL 80 MG TAB PO SCH ×3 (09:33→21:22)
[2016-03-14 12:00] VITALS: BP 119/78
--- NOTE | 2016-03-14 12:44 | IPNPDOC ---
Assessment/Plan Date Seen The patient was seen on 03/14/16. Plan / VTE VTE Prophylaxis Ordered?: Yes Plan Plan Text 1. Community Acquired pneumonia Chest x-ray noted Blood cultures, sputum culture pending Continue Rocephin and azithromycin Patient states that her respiratory status has improved 2. COPD Patient with no active wheezing noted on exam Continue with nebulizers four times a day. Will continue with Advair and Spiriva. 3. Atrial fibrillation with RVR, Heart rate better controlled this morning, in the 90s Continue verapamil and atenolol Continue on Coumadin for anticoagulation 4. Acute kidney injury versus chronic kidney disease. Serum creatinine noted to be 1.6 this morning-unknown baseline creatinine We will continue the patient's diuretics at this time as she does appear to have some pitting edema in the lower extremities We will order outpatient records of the patient's baseline labs 5. Hypertension. Will continue with verapamil and atenolol. 6. Gastroesophageal reflux disease (GERD). Continue PPI 7. History of right-sided lung cancer in 2006 status post surgical resection and chemotherapy 8. Chronic lower extremity lymphedema Continue on torsemide and spironolactone Subjective Review of Systems CC/HPI The patient is a 80-year-old female admitted with a reason for visit of A-Fib W/ Rvr; Copd Exacerbation. General: Denies: Chills, Night Sweats Constitutional: Denies: Chills, Fever Eyes: Denies: Pain, Vision change ENT: Denies: Ear Pain, Head Aches Skin: Denies: Lesions, Rash Pulmonary: Reports: Cough, Dyspnea Cardiovascular: Denies: Chest Pain, Palpitations Gastrointestinal: Denies: Abdominal Pain, Nausea, Vomiting Genitourinary: Denies: Dysuria, Frequency Hematologic: Denies: Bleeding Excessively, Bruising Objective Physical Examination General Exam: Positive: Alert, Cooperative, No Acute Distress ENT Exam: Positive: Atraumatic, Mucous membr. moist/pink Chest Exam: Positive: Diminished, Negative: Rales Heart Exam: Positive: Normal S1, Normal S2, Rate Normal Abdomen Exam: Positive: Soft, Negative: Tenderness Extremity Exam: Negative: Edema, Tenderness Vital Signs/I&O Vital Signs Date Time Temp Pulse Resp B/P Pulse Ox O2 Delivery O2 Flow Rate FiO2 03/14/16 09:33 91 108/71 03/14/16 08:00 96.8 18 97 Nasal Cannula 2.0 I&O- Last 24 Hours up to 6 AM 03/14/16 06:00 Intake Total 75 ml Output Total 800 ml Balance -725 ml Laboratory Data Labs 24H Laboratory Tests 2 03/13/16 17:47: Anion Gap 9, B-Type Natriuretic Peptide 708H, White Blood Count 7.9, Red Blood Count 4.50, Hemoglobin 13.8, Hematocrit 40.3, Mean Corpuscular Volume 89.6, Mean Corpuscular Hemoglobin 30.7, Mean Corpuscular Hemoglobin Concent 34.2, Red Cell Distribution Width 13.1, Platelet Count 189, Neutrophils (%) (Auto) 84.3H, Lymphocytes (%) (Auto) 6.2L, Monocytes (%) (Auto) 5.1H, Eosinophils (%) (Auto) 0.4, Basophils (%) (Auto) 0.2, Neutrophils # (Auto) 6.7, Lymphocytes # (Auto) 0.5L, Monocytes # (Auto) 0.4, Eosinophils # (Auto) 0.0, Basophils # (Auto) 0.0, Blood Urea Nitrogen 17, Creatinine 1.41H, Sodium Level 134L, Potassium Level 4.1 , Chloride Level 97L, Carbon Dioxide Level 28, Calcium Level 9.2, Glomerular Filtration Rate 38.0, Large Unclassified Cells # 0.3, Large Unclassified Cells % 3.8 03/13/16 17:58: Lactic Acid Level 1.0 03/13/16 20:24: Arterial Blood pH 7.483H, Arterial Blood Partial Pressure CO2 32.4L, Arterial Blood Partial Pressure O2 133.5H, Arterial Blood Total CO2 24.7, Arterial Blood HCO3 23.8, Arterial Blood Base Excess 1.0, Arterial Blood Oxygen Saturation 99.0 , Blood Gas Bicarbonate Standard 25.4, Oxygen Delivery Device NASAL CHANI 03/14/16 05:26: Anion Gap 12, White Blood Count 9.0, Red Blood Count 4.44, Hemoglobin 13.6, Hematocrit 40.1, Mean Corpuscular Volume 90.4, Mean Corpuscular Hemoglobin 30.6 , Mean Corpuscular Hemoglobin Concent 33.9, Red Cell Distribution Width 13.1, Platelet Count 178, Neutrophils (%) (Auto) 91.1H, Lymphocytes (%) (Auto) 5.7L, Monocytes (%) (Auto) 2.0, Eosinophils (%) (Auto) 0.2, Basophils (%) (Auto) 0.1, Neutrophils # (Auto) 8.2H, Lymphocytes # (Auto) 0.5L, Monocytes # (Auto) 0.2, Eosinophils # (Auto) 0.0, Basophils # (Auto) 0.0, Blood Urea Nitrogen 23H, Creatinine 1.62H, Sodium Level 136, Potassium Level 4.4, Chloride Level 100, Carbon Dioxide Level 24, Calcium Level 9.2, Glomerular Filtration Rate 32.4, Large Unclassified Cells # 0.1, Large Unclassified Cells % 1.0, Prothromb Time International Ratio 1.95, Prothrombin Time 22.3H CBC/BMP Laboratory Tests 03/13/16 17:47 Calcium Level 9.2, Red Blood Count 4.50, Mean Corpuscular Volume 89.6, Mean Corpuscular Hemoglobin 30.7, Mean Corpuscular Hemoglobin Concent 34.2, Red Cell Distribution Width 13.1, Neutrophils (%) (Auto) 84.3 H, Lymphocytes (%) (Auto) 6.2 L, Monocytes (%) (Auto) 5.1 H, Eosinophils (%) (Auto) 0.4, Basophils (%) ( Auto) 0.2, Neutrophils # (Auto) 6.7, Lymphocytes # (Auto) 0.5 L, Monocytes # ( Auto) 0.4, Eosinophils # (Auto) 0.0, Basophils # (Auto) 0.0 03/14/16 05:26 Calcium Level 9.2, Red Blood Count 4.44, Mean Corpuscular Volume 90.4, Mean Corpuscular Hemoglobin 30.6, Mean Corpuscular Hemoglobin Concent 33.9, Red Cell Distribution Width 13.1, Neutrophils (%) (Auto) 91.1 H, Lymphocytes (%) (Auto) 5.7 L, Monocytes (%) (Auto) 2.0, Eosinophils (%) (Auto) 0.2, Basophils (%) (Auto ) 0.1, Neutrophils # (Auto) 8.2 H, Lymphocytes # (Auto) 0.5 L, Monocytes # (Auto ) 0.2, Eosinophils # (Auto) 0.0, Basophils # (Auto) 0.0 Microbiology Microbiology 03/13/16 Blood Culture, Received Pending 03/13/16 Blood Culture, Received Pending 03/13/16 Influenza Virus Type A Antigen - Final, Complete 03/13/16 Influenza Virus Type B Antigen - Final, Complete VIMAL AMANDA MD Mar 14, 2016 12:44
[2016-03-14 16:00] VITALS: BP 150/58
[2016-03-14] MEDS ORDERED: WARFARIN SOD 5 MG TAB PO SCH (17:00)
[2016-03-14 20:00] VITALS: BP 118/60
[2016-03-14] MEDS: cefTRIAXone SOD 1 GM in D5W MINI-BAG PLUS 50 ML IV SCH (21:21)
[2016-03-14] MEDS: ATENOLOL 25 MG TAB PO SCH (21:21)
[2016-03-15] VITALS (8 sets, daily range): BP systolic 100–134; BP diastolic 56–78; PULSE 106
[2016-03-15] MEDS: IPRATROPIUM 0.5MG/ALBUTEROL 2.5MG INH SOL UD 3ML (DUONEB)(J7620) NEB SCH ×4 (02:00→20:00)
[2016-03-15 05:27] LABS: BASO % 0.1 % (0.0-1.0); EOS % 0.2 % (0.0-3.0); LARGE UNSTAINED CELL # 0.4 K/mm3 (0.0-0.4); LARGE UNSTAINED CELL % 4.6 % (0.0-4.0); LYMPH % 11.1 % (24.0-44.0); MEAN CORPUSCULAR HEMOGLOBIN 30.9 pg (27.0-33.0); MEAN CORPUSCULAR HGB CONC 34.3 g/dl (32.0-36.5); MEAN CORPUSCULAR VOLUME 90.2 fl (80.0-96.0); MONO # 0.5 K/mm3 (0.0-0.8); MONO % 6.1 % (0.0-5.0); NEUTROPHILS # 6.9 K/mm3 (1.8-7.7); NEUTROPHILS % 77.9 % (36.0-66.0); PLATELET COUNT, AUTOMATED 186 k/mm3 (150-450); RED CELL DISTRIBUTION WIDTH 13.1 % (11.5-14.5); WHITE BLOOD COUNT 8.9 K/mm3 (4.0-10.0)
[2016-03-15 05:36] LABS: INR 2.29
[2016-03-15 05:40] LABS: CALCIUM LEVEL 8.8 MG/DL (8.8-10.2); CREATININE FOR GFR 1.29 MG/DL (0.55-1.02); GLOMERULAR FILTRATION RATE 42.1 (>32)
[2016-03-15] MEDS: TIOTROPIUM INHALER/CAPSULE (SPIRIVA) INH SCH (07:42)
[2016-03-15] MEDS: ADVAIR DISKUS 250/50 INH PWD INH SCH ×2 (07:42→20:39)
[2016-03-15] MEDS: guaiFENesin ER 600 MG TAB PO SCH ×2 (09:39→21:21)
[2016-03-15] MEDS: PANTOPRAZOLE 40MG TAB (PROTONIX) PO SCH (09:39)
[2016-03-15] MEDS: AZITHROMYCIN 250 MG TAB PO SCH (09:39)
[2016-03-15] MEDS: SENOKOT S TAB PO SCH ×2 (09:39→21:21)
[2016-03-15] MEDS: VERAPAMIL 80 MG TAB PO SCH ×3 (09:40→21:24)
[2016-03-15] MEDS: TORSEMIDE 20 MG TAB PO SCH (09:40)
--- NOTE | 2016-03-15 11:19 | IPNPDOC ---
Assessment/Plan Date Seen The patient was seen on 03/15/16. Plan / VTE VTE Prophylaxis Ordered?: Yes Plan Plan Text 1. Community Acquired pneumonia Chest x-ray noted Blood cultures unrevealing thus far, sputum culture pending Continue Rocephin and azithromycin Patient states that her respiratory status has improved 2. COPD on 2 L of oxygen at home at baseline Patient with no active wheezing noted on exam Continue with nebulizers four times a day. Will continue with Advair and Spiriva. 3. Atrial fibrillation with RVR, Heart rate better controlled this morning, in the 90s Continue verapamil and atenolol Continue on Coumadin for anticoagulation 4. Acute kidney injury versus chronic kidney disease. Serum creatinine noted to be 1.29 and improved compared to admission labs, unknown baseline creatinine We will continue the patient's diuretics at this time as she does appear to have some pitting edema in the lower extremities We will order outpatient records of the patient's baseline labs 5. Hypertension. Will continue with verapamil and atenolol. 6. Gastroesophageal reflux disease (GERD). Continue PPI 7. History of right-sided lung cancer in 2006 status post surgical resection and chemotherapy 8. Chronic lower extremity lymphedema Continue on torsemide and spironolactone Disposition; we will order a physical therapy evaluation in order to further delineate the patient's disposition after medical clearance. Subjective Review of Systems CC/HPI The patient is a 80-year-old female admitted with a reason for visit of A-Fib W/ Rvr; Copd Exacerbation. General: Denies: Chills, Night Sweats Constitutional: Denies: Chills, Fever Eyes: Denies: Pain, Vision change ENT: Denies: Ear Pain, Head Aches Skin: Denies: Lesions, Rash Pulmonary: Reports: Cough, Dyspnea Cardiovascular: Denies: Chest Pain, Palpitations Gastrointestinal: Denies: Abdominal Pain, Nausea, Vomiting Hematologic: Denies: Bleeding Excessively, Bruising Objective Physical Examination General Exam: Positive: Alert, Cooperative, No Acute Distress ENT Exam: Positive: Atraumatic, Mucous membr. moist/pink Chest Exam: Positive: Diminished, Negative: Rales Heart Exam: Positive: Normal S1, Normal S2, Rate Normal Abdomen Exam: Positive: Soft, Negative: Tenderness Extremity Exam: Negative: Edema, Tenderness Vital Signs/I&O Vital Signs Date Time Temp Pulse Resp B/P Pulse Ox O2 Delivery O2 Flow Rate FiO2 03/15/16 09:40 97 134/78 03/15/16 04:20 Nasal Cannula 2.0 03/15/16 04:00 97.5 18 99 I&O- Last 24 Hours up to 6 AM 03/15/16 06:00 Intake Total 2000 ml Output Total 2450 ml Balance -450 ml Laboratory Data Labs 24H Laboratory Tests 2 03/15/16 05:16: Anion Gap 10, White Blood Count 8.9, Red Blood Count 4.14, Hemoglobin 12.8, Hematocrit 37.4, Mean Corpuscular Volume 90.2, Mean Corpuscular Hemoglobin 30.9 , Mean Corpuscular Hemoglobin Concent 34.3, Red Cell Distribution Width 13.1, Platelet Count 186, Neutrophils (%) (Auto) 77.9H, Lymphocytes (%) (Auto) 11.1L, Monocytes (%) (Auto) 6.1H, Eosinophils (%) (Auto) 0.2, Basophils (%) (Auto) 0.1 , Neutrophils # (Auto) 6.9, Lymphocytes # (Auto) 1.0L, Monocytes # (Auto) 0.5, Eosinophils # (Auto) 0.0, Basophils # (Auto) 0.0, Blood Urea Nitrogen 26H, Creatinine 1.29H, Sodium Level 139, Potassium Level 4.0, Chloride Level 100, Carbon Dioxide Level 29, Calcium Level 8.8, Glomerular Filtration Rate 42.1, Large Unclassified Cells # 0.4, Large Unclassified Cells % 4.6H, Prothromb Time International Ratio 2.29, Prothrombin Time 25.3H CBC/BMP Laboratory Tests 03/15/16 05:16 Calcium Level 8.8, Red Blood Count 4.14, Mean Corpuscular Volume 90.2, Mean Corpuscular Hemoglobin 30.9, Mean Corpuscular Hemoglobin Concent 34.3, Red Cell Distribution Width 13.1, Neutrophils (%) (Auto) 77.9 H, Lymphocytes (%) (Auto) 11.1 L, Monocytes (%) (Auto) 6.1 H, Eosinophils (%) (Auto) 0.2, Basophils (%) ( Auto) 0.1, Neutrophils # (Auto) 6.9, Lymphocytes # (Auto) 1.0 L, Monocytes # ( Auto) 0.5, Eosinophils # (Auto) 0.0, Basophils # (Auto) 0.0 Microbiology Microbiology 03/13/16 Blood Culture - Preliminary, Resulted No growth after 24 hours . All specim... 03/13/16 Blood Culture - Preliminary, Resulted No growth after 24 hours . All specim... 03/13/16 Influenza Virus Type A Antigen - Final, Complete 03/13/16 Influenza Virus Type B Antigen - Final, Complete VIMAL AMANDA MD Mar 15, 2016 11:19
[2016-03-15] MEDS ORDERED: WARFARIN SOD 2.5 MG TAB PO SCH (17:00)
[2016-03-15] MEDS: cefTRIAXone SOD 1 GM in D5W MINI-BAG PLUS 50 ML IV SCH (21:20)
[2016-03-15] MEDS: ATENOLOL 25 MG TAB PO SCH (21:24)
--- NOTE | 2016-03-15 23:33 | EDDOCDS ---
Physician Documentation [facility] Name: Maude Ward Age: 80 yrs Sex: Female : 1935 Arrival Date: 03/13/2016 Time: 15:53 Bed 18 Private MD: Unknown, Family Dr Disposition: 03/13/16 19:16 Hospitalization ordered by Thu Anderson for Inpatient Admission. Preliminary diagnosis is Chronic obstructive pulmonary disease with acute lower respiratory infection. - [facility] - Status is Inpatient Admission. jp6 - Condition is Stable. - Problem is new. - Symptoms are unchanged. Historical: - Allergies: No known drug Allergies; - Home Meds: 1. Spiriva with HandiHaler 18 mcg Inhl CpDv 1 cap once daily (Last dose: 03/12/2016 17:00) 2. Mucinex 600 mg oral Ta12 2 tabs every 12 hours (Last dose: 03/13/2016 11:00) 3. albuterol sulfate 2.5 mg /3 mL (0.083 %) Nebulizer nebu 4 times per day (Last dose: 03/13/2016 12:00) 4. Advair Diskus 250-50 mcg/dose Inhl dsdv 1 puff 2 times per day (Last dose: 03/13/2016 10:00) 5. atenolol 25 mg Oral tab bedtime (Last dose: 03/12/2016) 6. spironolactone 25 mg Oral tab 1 tab once daily (Last dose: 03/13/2016 11:00) 7. verapamil 80 mg Oral tab 1 tab 3 times per day (Last dose: 03/13/2016 10:00) 8. warfarin 5 mg Oral tab 1 tab once daily everyday but fri and sun 9. warfarin 2.5 mg Oral tab 1 tab once daily fri and sun 10. klor con20 three times a day (Last dose: 03/13/2016 10:00) 11. omeprazole 20 mg Oral cpDR 1 cap 2 times per day (Last dose: 03/13/2016 10:00) 12. torsemide 20 mg oral tab 2 tabs once daily (Last dose: 03/13/2016 10:00) 13. prevagen D 10MG daily (Last dose: 03/13/2016 10:00) - PMHx: afib; Emphysema; RIGHT LUNG CANCER; GERD; - PSHx: RIGHT LOBECTOMY; Cholecystectomy; Tonsillectomy; KNEE REPLACEMENT; - Social history: Smoking status: Patient states former smoker of tobacco. No barriers to communication noted, The patient speaks fluent [place], Speaks appropriately for age. - Family history: Not pertinent. - : The pt / caregiver states he / she is on anticoagulants: coumadin. Home medication list is obtained from the patient. - Exposure Risk Screening:: None identified. Vital Signs: 03/13 15:55 BP 143 / 77; Pulse 112; Resp 20 S; Temp 101.0(O); Pulse Ox 95% on R/A; Weight 83.91 kg dd6 / 184.99 lbs (R); Height 5 ft. 4 in. (162.56 cm) (R); 19:03 BP 126 / 62 (auto/); jp6 19:03 Pulse 120 MON; Pulse Ox 96% ; jp6 19:18 BP 122 / 64 (auto/); jp6 19:19 Pulse 122 MON; Pulse Ox 96% ; jp6 19:48 BP 122 / 67 (auto/); jp6 19:48 Pulse 114 MON; Pulse Ox 95% ; jp6 20:03 BP 110 / 58 (auto/); jp6 20:03 Pulse 114 MON; Pulse Ox 96% ; jp6 20:18 BP 131 / 89 (auto/); jp6 20:18 Pulse 120 MON; Pulse Ox 96% ; jp6 20:18 Resp 22; Temp 100.5(O); Pain 0/10; jp6 20:38 Pulse 112 MON; Pulse Ox 95% ; jp6 20:50 Pulse 114 MON; Pulse Ox 96% ; jp6 21:14 Pulse 110 MON; Pulse Ox 97% ; jp6 21:28 Pulse 110 MON; Pulse Ox 96% ; jp6 21:33 BP 122 / 66; Pulse 109; Resp 20; Temp 100.5; Pulse Ox 97% on 2 lpm NC; Pain 0/10; jp6 15:55 Body Mass Index 31.75 (83.91 kg, 162.56 cm) dd6 MDM: 17:03 -Blood Culture (Adults Only), peripheral from different site, or from device/port/PICC sd1 etc. if present ordered. 17:03 Polish Compounder/Pulse Ox/q 15 min VS ordered. sd1 17:03 IV Saline Lock ordered. sd1 17:03 Oxygen at 4L/Min NC or Home dosage ordered. sd1 17:03 Rhythm Strip to chart ordered. sd1 17:04 -Blood Culture Ordered. EDMS 17:04 B-Type Natiuretic Peptide Ordered. EDMS 17:04 Basic Metabolic Profile Ordered. EDMS 17:04 CBC with Diff Ordered. EDMS 17:04 Lactic Acid (García tube on ice) Ordered. EDMS 17:05 ECG WITH READING ER PHYS+CARDIAG ordered. EDMS 17:06 -Blood Culture (Adults Only), peripheral from different site, or from device/port/PICC lbd etc. if present complete. 17:06 Chest, 2 View (pa\E\lat) Ordered. EDMS 17:09 BLOOD CULTURES Ordered. EDMS 17:15 Acetaminophen Tablet 650 mg PO once ordered. sd1 17:17 -Influenza A&B Rapid Antigen - Nose Ordered. EDMS 17:44 Albuterol-Ipratropium 3 ml Inhalation once ordered. sd1 17:44 Call Respiratory ordered. sd1 17:45 Call Respiratory complete. lbd 18:15 CBC with Diff Reviewed. sd1 18:15 Chest, 2 View (pa\E\lat) Reviewed. sd1 18:15 EKG-ADULT Reviewed. sd1 18:21 [facility] Payment Agreement was scanned into [employer] and attached to record. gjb 18:21 Financial registration complete. gjb 18:58 B-Type Natiuretic Peptide Reviewed. sd1 18:58 Basic Metabolic Profile Reviewed. sd1 18:58 Lactic Acid (García tube on ice) Reviewed. sd1 18:58 -Influenza A&B Rapid Antigen - Nose Reviewed. sd1 19:04 Solu-MEDROL 125 mg IVP once ordered. sd1 19:04 cefTRIAXone 1 grams IVPB once over 30 mins; dilute in 50mL of NS or D5W ordered. sd1 19:05 azithromycin 500 mg IVPB once over 1 hrs; dilute in 250mL of D5W or NS ordered. sd1 19:05 Misc. Nursing Order ordered. sd1 19:12 Furosemide 20 mg IVP once ordered. sd1 19:13 BED REQUEST+ADM ordered. EDMS 19:15 Call Respiratory ordered. sd1 19:17 -Arterial Blood Gas Ordered. EDMS 19:28 Admission / Observation Status ordered. EDMS 19:28 OTHER CUSTOM DIETS ordered. EDMS 19:32 CBC WITH DIFFERENTIAL Ordered. EDMS 19:33 BASIC METABOLIC PROFILE Ordered. EDMS 19:47 Call Respiratory complete. tmm1 20:15 PROTHROMBIN TIME PROFILE\E\INR Ordered. EDMS 03/14 10:57 ECG/EKG was scanned into [employer] and attached to record. gb Administered Medications: 03/13 18:01 Drug: Acetaminophen 650 mg [acetaminophen 325 mg tablet (2 tabs)] Route: PO; b 18:05 Drug: Albuterol-Ipratropium 3 ml [ipratropium-albuterol 0.5 mg-3 mg(2.5 mg base)/3 mL jh6 nebulization soln (3 mL)] Route: Inhalation; 20:00 Drug: Solu-MEDROL 125 mg [Solu-Medrol 500 mg intravenous solution (125 mg)] Route: IVP; jp6 Site: left antecubital; 20:00 Drug: cefTRIAXone 1 grams [ceftriaxone 1 gram solution for injection] Route: IVPB; jp6 Infused Over: 30 mins; Site: left antecubital; 20:00 Drug: Furosemide 20 mg [furosemide 10 mg/mL injection solution (2 mL)] Route: IVP; jp6 Site: left antecubital; 21:34 Drug: azithromycin 500 mg [azithromycin 500 mg intravenous solution] Route: IVPB; kas2 Infused Over: 1 hrs; Site: left antecubital; Signatures: Dispatcher MedHost EDDE Kerry Painting MD MD sd1 Daly, Linda, Stock Buyer Unit lbd Arleth Milligan RN RN [facility], LALITA Ortiz RN, Gloria, Reg Reg gb McLear, Tomasa, VESSEL TRAFFIC OFFICER VESSEL TRAFFIC OFFICER tmm1 Karlene Patel Jessica, RN RN jp6 Jimmie Negron Joshua RN jmb Smith, Kim RN kas2 The chart was reviewed and I authenticate all verbal orders and agree with the evaluation and treatment provided.Corrections: (The following items were deleted from the chart) 20:20 17:09 BLOOD CULTURES ordered. EDDE EDMS Attachments: 18:21 [facility] Payment Agreement sheldon 03/14 10:57 ECG/EKG Chart Complete MTDD
--- NOTE | 2016-03-15 23:33 | EDDOCDS ---
Physician Documentation [facility] Name: Maude Ward Age: 80 yrs Sex: Female : 1935 Arrival Date: 03/13/2016 Time: 15:53 Bed 18 Private MD: Unknown, Family Dr Disposition: 03/13/16 19:16 Hospitalization ordered by Thu Anderson for Inpatient Admission. Preliminary diagnosis is Chronic obstructive pulmonary disease with acute lower respiratory infection. - [facility] - Status is Inpatient Admission. jp6 - Condition is Stable. - Problem is new. - Symptoms are unchanged. Historical: - Allergies: No known drug Allergies; - Home Meds: 1. Spiriva with HandiHaler 18 mcg Inhl CpDv 1 cap once daily (Last dose: 03/12/2016 17:00) 2. Mucinex 600 mg oral Ta12 2 tabs every 12 hours (Last dose: 03/13/2016 11:00) 3. albuterol sulfate 2.5 mg /3 mL (0.083 %) Nebulizer nebu 4 times per day (Last dose: 03/13/2016 12:00) 4. Advair Diskus 250-50 mcg/dose Inhl dsdv 1 puff 2 times per day (Last dose: 03/13/2016 10:00) 5. atenolol 25 mg Oral tab bedtime (Last dose: 03/12/2016) 6. spironolactone 25 mg Oral tab 1 tab once daily (Last dose: 03/13/2016 11:00) 7. verapamil 80 mg Oral tab 1 tab 3 times per day (Last dose: 03/13/2016 10:00) 8. warfarin 5 mg Oral tab 1 tab once daily everyday but fri and sun 9. warfarin 2.5 mg Oral tab 1 tab once daily fri and sun 10. klor con20 three times a day (Last dose: 03/13/2016 10:00) 11. omeprazole 20 mg Oral cpDR 1 cap 2 times per day (Last dose: 03/13/2016 10:00) 12. torsemide 20 mg oral tab 2 tabs once daily (Last dose: 03/13/2016 10:00) 13. prevagen D 10MG daily (Last dose: 03/13/2016 10:00) - PMHx: afib; Emphysema; RIGHT LUNG CANCER; GERD; - PSHx: RIGHT LOBECTOMY; Cholecystectomy; Tonsillectomy; KNEE REPLACEMENT; - Social history: Smoking status: Patient states former smoker of tobacco. No barriers to communication noted, The patient speaks fluent [place], Speaks appropriately for age. - Family history: Not pertinent. - : The pt / caregiver states he / she is on anticoagulants: coumadin. Home medication list is obtained from the patient. - Exposure Risk Screening:: None identified. Vital Signs: 03/13 15:55 BP 143 / 77; Pulse 112; Resp 20 S; Temp 101.0(O); Pulse Ox 95% on R/A; Weight 83.91 kg dd6 / 184.99 lbs (R); Height 5 ft. 4 in. (162.56 cm) (R); 19:03 BP 126 / 62 (auto/); jp6 19:03 Pulse 120 MON; Pulse Ox 96% ; jp6 19:18 BP 122 / 64 (auto/); jp6 19:19 Pulse 122 MON; Pulse Ox 96% ; jp6 19:48 BP 122 / 67 (auto/); jp6 19:48 Pulse 114 MON; Pulse Ox 95% ; jp6 20:03 BP 110 / 58 (auto/); jp6 20:03 Pulse 114 MON; Pulse Ox 96% ; jp6 20:18 BP 131 / 89 (auto/); jp6 20:18 Pulse 120 MON; Pulse Ox 96% ; jp6 20:18 Resp 22; Temp 100.5(O); Pain 0/10; jp6 20:38 Pulse 112 MON; Pulse Ox 95% ; jp6 20:50 Pulse 114 MON; Pulse Ox 96% ; jp6 21:14 Pulse 110 MON; Pulse Ox 97% ; jp6 21:28 Pulse 110 MON; Pulse Ox 96% ; jp6 21:33 BP 122 / 66; Pulse 109; Resp 20; Temp 100.5; Pulse Ox 97% on 2 lpm NC; Pain 0/10; jp6 15:55 Body Mass Index 31.75 (83.91 kg, 162.56 cm) dd6 MDM: 17:03 -Blood Culture (Adults Only), peripheral from different site, or from device/port/PICC sd1 etc. if present ordered. 17:03 Gutter Installer/Pulse Ox/q 15 min VS ordered. sd1 17:03 IV Saline Lock ordered. sd1 17:03 Oxygen at 4L/Min NC or Home dosage ordered. sd1 17:03 Rhythm Strip to chart ordered. sd1 17:04 -Blood Culture Ordered. EDMS 17:04 B-Type Natiuretic Peptide Ordered. EDMS 17:04 Basic Metabolic Profile Ordered. EDMS 17:04 CBC with Diff Ordered. EDMS 17:04 Lactic Acid (García tube on ice) Ordered. EDMS 17:05 ECG WITH READING ER PHYS+CARDIAG ordered. EDMS 17:06 -Blood Culture (Adults Only), peripheral from different site, or from device/port/PICC lbd etc. if present complete. 17:06 Chest, 2 View (pa\E\lat) Ordered. EDMS 17:09 BLOOD CULTURES Ordered. EDMS 17:15 Acetaminophen Tablet 650 mg PO once ordered. sd1 17:17 -Influenza A&B Rapid Antigen - Nose Ordered. EDMS 17:44 Albuterol-Ipratropium 3 ml Inhalation once ordered. sd1 17:44 Call Respiratory ordered. sd1 17:45 Call Respiratory complete. lbd 18:15 CBC with Diff Reviewed. sd1 18:15 Chest, 2 View (pa\E\lat) Reviewed. sd1 18:15 EKG-ADULT Reviewed. sd1 18:21 [facility] Payment Agreement was scanned into [employer] and attached to record. gjb 18:21 Financial registration complete. gjb 18:58 B-Type Natiuretic Peptide Reviewed. sd1 18:58 Basic Metabolic Profile Reviewed. sd1 18:58 Lactic Acid (García tube on ice) Reviewed. sd1 18:58 -Influenza A&B Rapid Antigen - Nose Reviewed. sd1 19:04 Solu-MEDROL 125 mg IVP once ordered. sd1 19:04 cefTRIAXone 1 grams IVPB once over 30 mins; dilute in 50mL of NS or D5W ordered. sd1 19:05 azithromycin 500 mg IVPB once over 1 hrs; dilute in 250mL of D5W or NS ordered. sd1 19:05 Misc. Nursing Order ordered. sd1 19:12 Furosemide 20 mg IVP once ordered. sd1 19:13 BED REQUEST+ADM ordered. EDMS 19:15 Call Respiratory ordered. sd1 19:17 -Arterial Blood Gas Ordered. EDMS 19:28 Admission / Observation Status ordered. EDMS 19:28 OTHER CUSTOM DIETS ordered. EDMS 19:32 CBC WITH DIFFERENTIAL Ordered. EDMS 19:33 BASIC METABOLIC PROFILE Ordered. EDMS 19:47 Call Respiratory complete. tmm1 20:15 PROTHROMBIN TIME PROFILE\E\INR Ordered. EDMS 03/14 10:57 ECG/EKG was scanned into [employer] and attached to record. gb Administered Medications: 03/13 18:01 Drug: Acetaminophen 650 mg [acetaminophen 325 mg tablet (2 tabs)] Route: PO; b 18:05 Drug: Albuterol-Ipratropium 3 ml [ipratropium-albuterol 0.5 mg-3 mg(2.5 mg base)/3 mL jh6 nebulization soln (3 mL)] Route: Inhalation; 20:00 Drug: Solu-MEDROL 125 mg [Solu-Medrol 500 mg intravenous solution (125 mg)] Route: IVP; jp6 Site: left antecubital; 20:00 Drug: cefTRIAXone 1 grams [ceftriaxone 1 gram solution for injection] Route: IVPB; jp6 Infused Over: 30 mins; Site: left antecubital; 20:00 Drug: Furosemide 20 mg [furosemide 10 mg/mL injection solution (2 mL)] Route: IVP; jp6 Site: left antecubital; 21:34 Drug: azithromycin 500 mg [azithromycin 500 mg intravenous solution] Route: IVPB; kas2 Infused Over: 1 hrs; Site: left antecubital; Signatures: Dispatcher MedHost EDVT Kerry Painting MD MD sd1 Daly, Linda, Mandarin Teacher Unit lbd Arleth Milligan RN RN [facility], LALITA Ortiz RN, Gloria, Reg Reg gb McLear, Tomasa, DIRECTOR PUBLIC DIRECTOR PUBLIC tmm1 Karlene Patel Jessica, RN RN jp6 Jimmie Negron Joshua RN jmb Smith, Kim RN kas2 The chart was reviewed and I authenticate all verbal orders and agree with the evaluation and treatment provided.Corrections: (The following items were deleted from the chart) 20:20 17:09 BLOOD CULTURES ordered. EDVT EDMS Attachments: 18:21 [facility] Payment Agreement sheldon 03/14 10:57 ECG/EKG Chart Complete MTDD
--- NOTE | 2016-03-15 23:33 | EDDOCDS ---
Nurse's Notes [facility] Name: Maude Ward Age: 80 yrs Sex: Female : 1935 Arrival Date: 03/13/2016 Time: 15:53 Bed 18 Private MD: Unknown, Family Dr Diagnosis: Chronic obstructive pulmonary disease with acute lower respiratory infection Presentation: 03/13 16:06 Presenting complaint: Patient states: feeling sick - coughing productive cough, chest srm hurts when coughs. went to [facility] urgent care and sent here for r/o pneumonia. symptoms for Wednesday. Adult Sepsis Screening: The patient does not have new or worsening altered mentation. Patient has a respiratory rate of greater than or equal to 22 (1 point). Systolic blood pressure is greater than 100. Patient has a qSOFA score of 0- Negative Sepsis Screen. Suicide/Homicide risk assessment- the patient denies having any suicidal and/or homicidal ideations and does not present with any other emotional, behavioral or mental health complaints. Status: Patient is not a instructional services librarian or dependent. Transition of care: Patient was received from [facility]gent [facility]. 16:06 Method Of Arrival: Walkin/Carried/[facility] 16:06 Acuity: ANNABEL Level 3 srm Triage Assessment: 16:15 General: Appears in no apparent distress, Behavior is appropriate for age, cooperative. srm Pain: Pain currently is 0 out of 10 on a pain scale. At worst was 7 out of 10 on a pain scale. Respiratory: Onset: The symptoms/episode began/occurred gradually. Historical: - Allergies: No known drug Allergies; - Home Meds: 1. Spiriva with HandiHaler 18 mcg Inhl CpDv 1 cap once daily (Last dose: 03/12/2016 17:00) 2. Mucinex 600 mg oral Ta12 2 tabs every 12 hours (Last dose: 03/13/2016 11:00) 3. albuterol sulfate 2.5 mg /3 mL (0.083 %) Nebulizer nebu 4 times per day (Last dose: 03/13/2016 12:00) 4. Advair Diskus 250-50 mcg/dose Inhl dsdv 1 puff 2 times per day (Last dose: 03/13/2016 10:00) 5. atenolol 25 mg Oral tab bedtime (Last dose: 03/12/2016) 6. spironolactone 25 mg Oral tab 1 tab once daily (Last dose: 03/13/2016 11:00) 7. verapamil 80 mg Oral tab 1 tab 3 times per day (Last dose: 03/13/2016 10:00) 8. warfarin 5 mg Oral tab 1 tab once daily everyday but fri and sun 9. warfarin 2.5 mg Oral tab 1 tab once daily fri and sun 10. klor con20 three times a day (Last dose: 03/13/2016 10:00) 11. omeprazole 20 mg Oral cpDR 1 cap 2 times per day (Last dose: 03/13/2016 10:00) 12. torsemide 20 mg oral tab 2 tabs once daily (Last dose: 03/13/2016 10:00) 13. prevagen D 10MG daily (Last dose: 03/13/2016 10:00) - PMHx: afib; Emphysema; RIGHT LUNG CANCER; GERD; - PSHx: RIGHT LOBECTOMY; Cholecystectomy; Tonsillectomy; KNEE REPLACEMENT; - Social history: Smoking status: Patient states former smoker of tobacco. No barriers to communication noted, The patient speaks fluent Slovenian, Speaks appropriately for age. - Family history: Not pertinent. - : The pt / caregiver states he / she is on anticoagulants: coumadin. Home medication list is obtained from the patient. - Exposure Risk Screening:: None identified. Screenin:18 Screening information is obtained from the patient. Fall risk: At risk due to age, gait jp6 disturbance. Assistance ADL's: requires no assistance with activities of daily living. Abuse/DV Screen: The patient / caregiver reports he/she is: not in a situation that causes fear, pain or injury. Nutritional screening: No deficits noted. home support is adequate. 20:18 Advance Directives: Currently, there is a health care proxy, SON Mynor Ward. There is jp6 no active DNR order. There is no living will. Assessment: 18:02 General: Appears in no apparent distress, comfortable, Behavior is appropriate for age, jmb cooperative, Patient laying on stretcher, appears comfortable. Son at bedside. No voiced complaints at this time. . Neurological: Level of Consciousness is awake, alert, obeys commands, Oriented to person, place, time, Speech is normal, Facial symmetry appears normal, Facial symmetry: tongue is midline. Respiratory: Airway is patent Respiratory effort is even, Respiratory pattern is regular. 20:21 Reassessment: Patient appears in no apparent distress at this time. Patient states jp6 symptoms have improved. General: Appears in no apparent distress, comfortable, well developed, well nourished, Behavior is appropriate for age, cooperative. Pain: Denies pain. Neurological: Level of Consciousness is awake, alert, Oriented to person, place, time. EENT: No deficits noted. Cardiovascular: Capillary refill < 3 seconds Rhythm is sinus tachycardia No ectopy. Respiratory: Airway is patent Respiratory effort is even, labored, Respiratory pattern is regular, symmetrical, Breath sounds with wheezes inspiratory expiratory bilaterally. GI: No deficits noted. Abdomen is flat, Bowel sounds present X 4 quads. : No deficits noted. Derm: Skin is intact, Skin is dry, Skin is flushed, Skin temperature is warm. Musculoskeletal: No deficits noted. 21:29 Reassessment: Patient appears in no apparent distress at this time. Pain: Denies pain. jp6 Cardiovascular: Rhythm is sinus tachycardia No ectopy. Respiratory: Airway is patent Respiratory effort is even, labored, Respiratory pattern is regular, symmetrical. Derm: Skin is flushed. Vital Signs: 15:55 BP 143 / 77; Pulse 112; Resp 20 S; Temp 101.0(O); Pulse Ox 95% on R/A; Weight 83.91 kg dd6 (R); Height 5 ft. 4 in. (162.56 cm) (R); 19:03 BP 126 / 62 (auto/); jp6 19:03 Pulse 120 MON; Pulse Ox 96% ; jp6 19:18 BP 122 / 64 (auto/); jp6 19:19 Pulse 122 MON; Pulse Ox 96% ; jp6 19:48 BP 122 / 67 (auto/); jp6 19:48 Pulse 114 MON; Pulse Ox 95% ; jp6 20:03 BP 110 / 58 (auto/); jp6 20:03 Pulse 114 MON; Pulse Ox 96% ; jp6 20:18 BP 131 / 89 (auto/); jp6 20:18 Pulse 120 MON; Pulse Ox 96% ; jp6 20:18 Resp 22; Temp 100.5(O); Pain 0/10; jp6 20:38 Pulse 112 MON; Pulse Ox 95% ; jp6 20:50 Pulse 114 MON; Pulse Ox 96% ; jp6 21:14 Pulse 110 MON; Pulse Ox 97% ; jp6 21:28 Pulse 110 MON; Pulse Ox 96% ; jp6 21:33 BP 122 / 66; Pulse 109; Resp 20; Temp 100.5; Pulse Ox 97% on 2 lpm NC; Pain 0/10; jp6 15:55 Body Mass Index 31.75 (83.91 kg, 162.56 cm) dd6 Vitals: 15:55 Log In Time: March 13, 2016 at 15:53. dd6 ED Course: 15:54 Patient visited by Prudencio Edmonds PCA. dd6 15:54 Patient moved to Waiting dd6 15:55 Unknown, Family Dr is Private Physician. dd6 15:56 Patient moved to Pre RCE dd6 16:07 Triage Initiated srm 16:22 Carl Carter, RN is Primary Nurse. srm 16:22 Patient moved to 18 srm 16:25 Patient visited by Lynnette Reyna PCA. jlf 16:34 Kerry Painting MD is Attending Physician. sd1 16:56 Patient visited by Kerry Painting MD. sd1 17:13 Patient visited by Lynnette Reyna PCA. jlf 17:13 EKG done. (by ED staff). Reviewed by Kerry Painting MD. jlf 17:49 -Blood Culture Sent. jmb 17:49 B-Type Natiuretic Peptide Sent. jmb 17:49 Basic Metabolic Profile Sent. jmb 17:49 CBC with Diff Sent. jmb 18:02 -Influenza A&B Rapid Antigen - Nose Sent. jmb 18:02 BLOOD CULTURES Sent. jmb 18:02 Lactic Acid (García tube on ice) Sent. jmb 18:03 Patient visited by Jose L Valera RN. jmb 18:07 EKG-ADULT Returned. EDMS 18:12 Chest, 2 View (pa\E\lat) Returned. EDMS 18:21 [facility] [place] was scanned into [employer] and attached to record. gjb 18:28 Patient visited by Lynnette Reyna PCA. jlf 18:30 Patient name changed from Maude\S\\S\Walker\S\ to Maude\S\Mabel\S\Walker. EDMS 19:03 Primary Nurse role handed off by Carl Carter, RN jp6 19:03 Esperanza Lorenz,RN is Primary Nurse. jp6 19:16 Thu Anderson is Hospitalizing Provider. sd1 20:15 Side rails up X2. Door closed. Head of bed Elevated. Diet tray given. Diet:. jlm 20:16 Patient visited by Mica Glover, Manager Plumbing. jlm 20:18 The patient / caregiver is instructed regarding the plan of care and ED course. Cardiac jp6 monitor on. Pulse ox on. NIBP on. 20:18 Inserted saline lock: 20 gauge in left antecubital area. No procedures done that jp6 require assistance. O2 via nasal cannula \T\ 2L/min. 20:27 -Arterial Blood Gas Sent. 3 03/14 10:57 ECG/EKG was scanned into [employer] and attached to record. gb Administered Medications: 03/13 18:01 Drug: Acetaminophen 650 mg [acetaminophen 325 mg tablet (2 tabs)] Route: PO; jmb 18:05 Drug: Albuterol-Ipratropium 3 ml [ipratropium-albuterol 0.5 mg-3 mg(2.5 mg base)/3 mL jh6 nebulization soln (3 mL)] Route: Inhalation; 20:00 Drug: Solu-MEDROL 125 mg [Solu-Medrol 500 mg intravenous solution (125 mg)] Route: IVP; jp6 Site: left antecubital; 20:00 Drug: cefTRIAXone 1 grams [ceftriaxone 1 gram solution for injection] Route: IVPB; jp6 Infused Over: 30 mins; Site: left antecubital; 20:00 Drug: Furosemide 20 mg [furosemide 10 mg/mL injection solution (2 mL)] Route: IVP; jp6 Site: left antecubital; 21:34 Drug: azithromycin 500 mg [azithromycin 500 mg intravenous solution] Route: IVPB; kas2 Infused Over: 1 hrs; Site: left antecubital; RT: 18:05 Initial Med Neb Given as ordered Patient was instructed and evaluated on procedure jh6 Patient tolerated procedure well without adverse effect. Respiratory: Airway is patent Respiratory effort is even, unlabored, Respiratory pattern is regular symmetrical, Breath sounds with rhonchi in right upper lobe, left upper lobe and right middle lobe Breath sounds are diminished in right upper lobe, left upper lobe, right middle lobe, left lower lobe and right lower lobe Breath sounds with wheezes in right upper lobe, left upper lobe and right middle lobe at expiration Reports cough that is productive. 20:27 ABG's drawn from right radial artery pressure held for 5 minutes no bleeding noted jc3 pressure bandage applied specimen sent pt. tolerated well. Order Results: Lab Order: B-Type Natiuretic Peptide; SPEC'M 03/13/16 17:47 Test: BRAIN NATRIURETIC PEPTIDE; Value: 708; Range: <100; Abnormal: Above high normal; Units: PG/ML; Status: F Lab Order: Basic Metabolic Profile; SPEC'M 03/13/16 17:47 Test: GLUCOSE, FASTING; Value: 113; Range: 83-110; Abnormal: Above high normal; Units: MG/DL; Status: F Test: BLOOD UREA NITROGEN; Value: 17; Range: 7-18; Units: MG/DL; Status: F Test: CREATININE FOR GFR; Value: 1.41; Range: 0.55-1.02; Abnormal: Above high normal; Units: MG/DL; Status: F Test: GLOMERULAR FILTRATION RATE; Value: 38.0; Range: >32; Status: F Test: SODIUM LEVEL; Value: 134; Range: 136-145; Abnormal: Below low normal; Units: MEQ/L; Status: F Test: POTASSIUM SERUM; Value: 4.1; Range: 3.5-5.1; Units: MEQ/L; Status: F Test: CHLORIDE LEVEL; Value: 97; Range: 98-107; Abnormal: Below low normal; Units: MEQ/L; Status: F Test: CARBON DIOXIDE LEVEL; Value: 28; Range: 21-32; Units: MEQ/L; Status: F Test: ANION GAP; Value: 9; Range: 8-16; Units: MEQ/L; Status: F Test: CALCIUM LEVEL; Value: 9.2; Range: 8.8-10.2; Units: MG/DL; Status: F Test Note: ; Units are mL/min/1.73 m2 Chronic Kidney Disease Staging per NKF: Stage I & II GFR >=60 Normal to Mildly Decreased Stage III GFR 30-59 Moderately Decreased Stage IV GFR 15-29 Severely Decreased Stage V GFR <15 Very Little GFR Left ESRD GFR <15 on BROOCH AND BRACE[employer]ER Lab Order: CBC with Diff; SPEC'M 03/13/16 17:47 Test: WHITE BLOOD COUNT; Value: 7.9; Range: 4.0-10.0; Units: K/mm3; Status: F Test: RED BLOOD COUNT; Value: 4.50; Range: 4.00-5.40; Units: M/mm3; Status: F Test: HEMOGLOBIN; Value: 13.8; Range: 12.0-16.0; Units: g/dl; Status: F Test: HEMATOCRIT; Value: 40.3; Range: 36.0-47.0; Units: %; Status: F Test: MEAN CORPUSCULAR VOLUME; Value: 89.6; Range: 80.0-96.0; Units: fl; Status: F Test: MEAN CORPUSCULAR HEMOGLOBIN; Value: 30.7; Range: 27.0-33.0; Units: pg; Status: F Test: MEAN CORPUSCULAR HGB CONC; Value: 34.2; Range: 32.0-36.5; Units: g/dl; Status: F Test: RED CELL DISTRIBUTION WIDTH; Value: 13.1; Range: 11.5-14.5; Units: %; Status: F Test: PLATELET COUNT, AUTOMATED; Value: 189; Range: 150-450; Units: k/mm3; Status: F Test: NEUTROPHILS %; Value: 84.3; Range: 36.0-66.0; Abnormal: Above high normal; Units: %; Status: F Test: LYMPH %; Value: 6.2; Range: 24.0-44.0; Abnormal: Below low normal; Units: %; Status: F Test: MONO %; Value: 5.1; Range: 0.0-5.0; Abnormal: Above high normal; Units: %; Status: F Test: EOS %; Value: 0.4; Range: 0.0-3.0; Units: %; Status: F Test: BASO %; Value: 0.2; Range: 0.0-1.0; Units: %; Status: F Test: LARGE UNSTAINED CELL %; Value: 3.8; Range: 0.0-4.0; Units: %; Status: F Test: NEUTROPHILS #; Value: 6.7; Range: 1.8-7.7; Units: K/mm3; Status: F Test: LYMPH #; Value: 0.5; Range: 1.5-4.5; Abnormal: Below low normal; Units: K/mm3; Status: F Test: MONO #; Value: 0.4; Range: 0.0-0.8; Units: K/mm3; Status: F Test: EOS #; Value: 0.0; Range: 0.0-0.50; Units: K/mm3; Status: F Test: BASO #; Value: 0.0; Range: 0.0-0.2; Units: K/mm3; Status: F Test: LARGE UNSTAINED CELL #; Value: 0.3; Range: 0.0-0.4; Units: K/mm3; Status: F Lab Order: Lactic Acid (García tube on ice); SPEC'M 03/13/16 17:58 Test: LACTIC ACID LEVEL, LACTATE; Value: 1.0; Range: 0.4-2.0; Units: MMOL/L; Status: F Lab Order: -Influenza A&B Rapid Antigen - Nose; SPEC'M 03/13/16 17:58 Test: INFLUENZA A RAPID SCR by ICA; Value: INFLUENZA A RESULTS NEGATIVE; Status: F Test: INFLUENZA A RAPID SCR by ICA; Value: Comments:; Status: F Test: INFLUENZA B RAPID SCR by ICA; Value: INFLUENZA B RESULTS NEGATIVE; Status: F Test Note: ; The Influenza test is a direct rapid immunoassay for the qualitative detection of Influenza viral antigen. Cell culture (Viral Culture) testing should be considered to confirm NEGATIVE results and to assist in detecting other viruses that can provide similar clinical symptoms. Please contact the lab within 24 hours ([phone]) if confirmatory testing is desired. Lab Order: -Arterial Blood Gas; SPEC'M 03/13/16 20:24 Test: ABG pH (ARTERIAL); Value: 7.483; Range: 7.350-7.450; Abnormal: Above high normal; Units: UNITS; Status: F Test: ABG PARTIAL PRESSURE CO2; Value: 32.4; Range: 35.0-45.0; Abnormal: Below low normal; Units: mmHg; Status: F Test: ABG PARTIAL PRESSURE O2; Value: 133.5; Range: 75.0-100.0; Abnormal: Above high normal; Units: mmHg; Status: F Test: ABG TOTAL CO2; Value: 24.7; Range: 23.0-31.0; Units: MEQ/L; Status: F Test: ABG HCO3; Value: 23.8; Range: 22.0-26.0; Units: MEQ/L; Status: F Test: ABG BASE EXCESS; Value: 1.0; Range: -2.0-2.0; Status: F Test: ABG STANDARD HCO3; Value: 25.4; Range: 22.0-26.0; Units: MEQ/L; Status: F Test: ABG O2 SATURATION; Value: 99.0; Range: 95.0-99.0; Units: %; Status: F Test: ABG DEVICE; Value: NASAL CHANI; Status: F Test Note: ; AIR BUBBLE AT TOP OF SYRINGE Radiology Order: Chest, 2 View (pa\E\lat) Test: Chest, 2 View (pa\E\lat) REASON FOR EXAMINATION: Cough; Clinical: Cough.; ; Technique: PA and lateral.; ; Comparison: None.; ; Findings:; Diffuse chronic interstitial changes with fibrosis and scarring noted; bilaterally. Subtle nodular density in the left mid lung zone cannot be; excluded. Underlying atelectasis cannot be excluded. No effusion or; pneumothorax. Cardiac silhouette is normal. Surgical clips noted in the middle; mediastinum. 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 sd1 21:32 Discharge Assessment: Patient awake, alert and oriented x 3. No cognitive and/or jp6 functional deficits noted. Patient verbalized understanding of disposition instructions. patient administered narcotics - no. The following High Risk Discharge criteria are identified: None. Admitted to PCU accompanied by nurse, accompanied by tech, via stretcher, with oxygen, on monitor, with chart. Condition: unchanged. No special radiology studies were completed. Property :Personal belongings accompany Pt. 22:32 Patient left the ED. 6 Signatures: Dispatcher [employer] EDKerry Irving MD MD sd1 Arleth Milligan, RN RN [facility] Rona Castillo, Reg Reg Keron Davalos jc3 Prudencio Edmonds, COMPENSATION AND BENEFITS MANAGER COMPENSATION AND BENEFITS MANAGER dd6 Jimmie Negron6 Jose L Valera,RN RN Lynnette Farley, COMPENSATION AND BENEFITS MANAGER COMPENSATION AND BENEFITS MANAGER jlf Mica Glover, Manager Plumbing Unit Karlene Craig Kim,RN RN kas2 Esperanza Lorenz,RN RN jp6 Corrections: (The following items were deleted from the chart) 20:20 17:49 BLOOD CULTURES sent. miller OLIVARESVT Chart Complete MTDD
[2016-03-16] VITALS: PULSE 97
[2016-03-16] MEDS: IPRATROPIUM 0.5MG/ALBUTEROL 2.5MG INH SOL UD 3ML (DUONEB)(J7620) NEB SCH ×2 (01:42→08:00)
[2016-03-16 04:00] VITALS: PULSE 89
[2016-03-16 05:13] VITALS: BP 115/67
[2016-03-16 05:30] LABS: BASO % 0.2 % (0.0-1.0); EOS # 0.1 K/mm3 (0.0-0.50); EOS % 0.9 % (0.0-3.0); LARGE UNSTAINED CELL # 0.4 K/mm3 (0.0-0.4); LARGE UNSTAINED CELL % 4.4 % (0.0-4.0); LYMPH # 1.3 K/mm3 (1.5-4.5); LYMPH % 15.8 % (24.0-44.0); MEAN CORPUSCULAR HEMOGLOBIN 30.6 pg (27.0-33.0); MEAN CORPUSCULAR HGB CONC 34.5 g/dl (32.0-36.5); MEAN CORPUSCULAR VOLUME 88.8 fl (80.0-96.0); MONO # 0.6 K/mm3 (0.0-0.8); MONO % 7.6 % (0.0-5.0); NEUTROPHILS # 5.7 K/mm3 (1.8-7.7); NEUTROPHILS % 71.2 % (36.0-66.0); PLATELET COUNT, AUTOMATED 192 k/mm3 (150-450); WHITE BLOOD COUNT 8.1 K/mm3 (4.0-10.0)
[2016-03-16 05:35] LABS: INR 2.13
[2016-03-16 05:41] LABS: CALCIUM LEVEL 8.3 MG/DL (8.8-10.2); CREATININE FOR GFR 1.36 MG/DL (0.55-1.02); GLOMERULAR FILTRATION RATE 39.6 (>32); POTASSIUM SERUM 3.2 MEQ/L (3.5-5.1)
[2016-03-16] MEDS ORDERED: POTASSIUM CHLORIDE 10% LIQ 20 MEQ/15 ML UDC PO ONE (07:45)
[2016-03-16 08:00] VITALS: BP 109/73
[2016-03-16] MEDS: TIOTROPIUM INHALER/CAPSULE (SPIRIVA) INH SCH (08:24)
[2016-03-16] MEDS: ADVAIR DISKUS 250/50 INH PWD INH SCH (08:25)
[2016-03-16] MEDS ORDERED: SPIRONOLACTONE 25 MG TAB PO SCH (09:00)
[2016-03-16 09:25] VITALS: BP 109/73
[2016-03-16] MEDS: PANTOPRAZOLE 40MG TAB (PROTONIX) PO SCH (09:25)
[2016-03-16] MEDS: TORSEMIDE 20 MG TAB PO SCH (09:25)
[2016-03-16] MEDS: SENOKOT S TAB PO SCH (09:25)
[2016-03-16] MEDS: AZITHROMYCIN 250 MG TAB PO SCH (09:25)
[2016-03-16] MEDS: guaiFENesin ER 600 MG TAB PO SCH (09:25)
[2016-03-16] MEDS: VERAPAMIL 80 MG TAB PO SCH (09:25)
[2016-03-16] MEDS ORDERED: DOXY-278 PO (11:10)
[2016-03-16 12:00] VITALS: BP 125/73
--- NOTE | 2016-03-16 13:55 | EDDOCDS ---
Physician Documentation [facility] Name: Maude Ward Age: 80 yrs Sex: Female : 1935 Arrival Date: 03/13/2016 Time: 15:53 Bed 18 Private MD: Unknown, Family Dr Disposition: 03/13/16 19:16 Hospitalization ordered by Thu Anderson for Inpatient Admission. Preliminary diagnosis is Chronic obstructive pulmonary disease with acute lower respiratory infection. - [facility] - Status is Inpatient Admission. jp6 - Condition is Stable. - Problem is new. - Symptoms are unchanged. Historical: - Allergies: No known drug Allergies; - Home Meds: 1. Spiriva with HandiHaler 18 mcg Inhl CpDv 1 cap once daily (Last dose: 03/12/2016 17:00) 2. Mucinex 600 mg oral Ta12 2 tabs every 12 hours (Last dose: 03/13/2016 11:00) 3. albuterol sulfate 2.5 mg /3 mL (0.083 %) Nebulizer nebu 4 times per day (Last dose: 03/13/2016 12:00) 4. Advair Diskus 250-50 mcg/dose Inhl dsdv 1 puff 2 times per day (Last dose: 03/13/2016 10:00) 5. atenolol 25 mg Oral tab bedtime (Last dose: 03/12/2016) 6. spironolactone 25 mg Oral tab 1 tab once daily (Last dose: 03/13/2016 11:00) 7. verapamil 80 mg Oral tab 1 tab 3 times per day (Last dose: 03/13/2016 10:00) 8. warfarin 5 mg Oral tab 1 tab once daily everyday but fri and sun 9. warfarin 2.5 mg Oral tab 1 tab once daily fri and sun 10. klor con20 three times a day (Last dose: 03/13/2016 10:00) 11. omeprazole 20 mg Oral cpDR 1 cap 2 times per day (Last dose: 03/13/2016 10:00) 12. torsemide 20 mg oral tab 2 tabs once daily (Last dose: 03/13/2016 10:00) 13. prevagen D 10MG daily (Last dose: 03/13/2016 10:00) - PMHx: afib; Emphysema; RIGHT LUNG CANCER; GERD; - PSHx: RIGHT LOBECTOMY; Cholecystectomy; Tonsillectomy; KNEE REPLACEMENT; - Social history: Smoking status: Patient states former smoker of tobacco. No barriers to communication noted, The patient speaks fluent Tajik, Speaks appropriately for age. - Family history: Not pertinent. - : The pt / caregiver states he / she is on anticoagulants: coumadin. Home medication list is obtained from the patient. - Exposure Risk Screening:: None identified. Vital Signs: 03/13 15:55 BP 143 / 77; Pulse 112; Resp 20 S; Temp 101.0(O); Pulse Ox 95% on R/A; Weight 83.91 kg dd6 / 184.99 lbs (R); Height 5 ft. 4 in. (162.56 cm) (R); 19:03 BP 126 / 62 (auto/); jp6 19:03 Pulse 120 MON; Pulse Ox 96% ; jp6 19:18 BP 122 / 64 (auto/); jp6 19:19 Pulse 122 MON; Pulse Ox 96% ; jp6 19:48 BP 122 / 67 (auto/); jp6 19:48 Pulse 114 MON; Pulse Ox 95% ; jp6 20:03 BP 110 / 58 (auto/); jp6 20:03 Pulse 114 MON; Pulse Ox 96% ; jp6 20:18 BP 131 / 89 (auto/); jp6 20:18 Pulse 120 MON; Pulse Ox 96% ; jp6 20:18 Resp 22; Temp 100.5(O); Pain 0/10; jp6 20:38 Pulse 112 MON; Pulse Ox 95% ; jp6 20:50 Pulse 114 MON; Pulse Ox 96% ; jp6 21:14 Pulse 110 MON; Pulse Ox 97% ; jp6 21:28 Pulse 110 MON; Pulse Ox 96% ; jp6 21:33 BP 122 / 66; Pulse 109; Resp 20; Temp 100.5; Pulse Ox 97% on 2 lpm NC; Pain 0/10; jp6 15:55 Body Mass Index 31.75 (83.91 kg, 162.56 cm) dd6 MDM: 17:03 -Blood Culture (Adults Only), peripheral from different site, or from device/port/PICC sd1 etc. if present ordered. 17:03 Allergy Physician/Pulse Ox/q 15 min VS ordered. sd1 17:03 IV Saline Lock ordered. sd1 17:03 Oxygen at 4L/Min NC or Home dosage ordered. sd1 17:03 Rhythm Strip to chart ordered. sd1 17:04 -Blood Culture Ordered. EDMS 17:04 B-Type Natiuretic Peptide Ordered. EDMS 17:04 Basic Metabolic Profile Ordered. EDMS 17:04 CBC with Diff Ordered. EDMS 17:04 Lactic Acid (García tube on ice) Ordered. EDMS 17:05 ECG WITH READING ER PHYS+CARDIAG ordered. EDMS 17:06 -Blood Culture (Adults Only), peripheral from different site, or from device/port/PICC lbd etc. if present complete. 17:06 Chest, 2 View (pa\E\lat) Ordered. EDMS 17:09 BLOOD CULTURES Ordered. EDMS 17:15 Acetaminophen Tablet 650 mg PO once ordered. sd1 17:17 -Influenza A&B Rapid Antigen - Nose Ordered. EDMS 17:44 Albuterol-Ipratropium 3 ml Inhalation once ordered. sd1 17:44 Call Respiratory ordered. sd1 17:45 Call Respiratory complete. lbd 18:15 CBC with Diff Reviewed. sd1 18:15 Chest, 2 View (pa\E\lat) Reviewed. sd1 18:15 EKG-ADULT Reviewed. sd1 18:21 [facility] [place] Agreement was scanned into [employer] and attached to record. gjb 18:21 Financial registration complete. gjb 18:58 B-Type Natiuretic Peptide Reviewed. sd1 18:58 Basic Metabolic Profile Reviewed. sd1 18:58 Lactic Acid (García tube on ice) Reviewed. sd1 18:58 -Influenza A&B Rapid Antigen - Nose Reviewed. sd1 19:04 Solu-MEDROL 125 mg IVP once ordered. sd1 19:04 cefTRIAXone 1 grams IVPB once over 30 mins; dilute in 50mL of NS or D5W ordered. sd1 19:05 azithromycin 500 mg IVPB once over 1 hrs; dilute in 250mL of D5W or NS ordered. sd1 19:05 Misc. Nursing Order ordered. sd1 19:12 Furosemide 20 mg IVP once ordered. sd1 19:13 BED REQUEST+ADM ordered. EDMS 19:15 Call Respiratory ordered. sd1 19:17 -Arterial Blood Gas Ordered. EDMS 19:28 Admission / Observation Status ordered. EDMS 19:28 OTHER CUSTOM DIETS ordered. EDMS 19:32 CBC WITH DIFFERENTIAL Ordered. EDMS 19:33 BASIC METABOLIC PROFILE Ordered. EDMS 19:47 Call Respiratory complete. tmm1 20:15 PROTHROMBIN TIME PROFILE\E\INR Ordered. EDMS 03/14 10:57 ECG/EKG was scanned into [employer] and attached to record. gb Administered Medications: 03/13 18:01 Drug: Acetaminophen 650 mg [acetaminophen 325 mg tablet (2 tabs)] Route: PO; b 18:05 Drug: Albuterol-Ipratropium 3 ml [ipratropium-albuterol 0.5 mg-3 mg(2.5 mg base)/3 mL jh6 nebulization soln (3 mL)] Route: Inhalation; 20:00 Drug: Solu-MEDROL 125 mg [Solu-Medrol 500 mg intravenous solution (125 mg)] Route: IVP; jp6 Site: left antecubital; 20:00 Drug: cefTRIAXone 1 grams [ceftriaxone 1 gram solution for injection] Route: IVPB; jp6 Infused Over: 30 mins; Site: left antecubital; 20:00 Drug: Furosemide 20 mg [furosemide 10 mg/mL injection solution (2 mL)] Route: IVP; jp6 Site: left antecubital; 21:34 Drug: azithromycin 500 mg [azithromycin 500 mg intravenous solution] Route: IVPB; kas2 Infused Over: 1 hrs; Site: left antecubital; Signatures: Dispatcher [employer] EDNC Kerry Painting MD MD sd1 Daly, Linda, Buggyman Unit lbd Arleth Milligan RN RN [facility], LALITA Ortiz RN, Gloria, Reg Reg gb McLear, Tomasa, CONSTRUCTION COST ESTIMATOR CONSTRUCTION COST ESTIMATOR tmm1 Karlene Patel Jessica, RN RN jp6 Jimmie Negron Joshua RN jmb Smith, Kim RN kas2 The chart was reviewed and I authenticate all verbal orders and agree with the evaluation and treatment provided.Corrections: (The following items were deleted from the chart) 20:20 17:09 BLOOD CULTURES ordered. EDNC EDMS Attachments: 18:21 [facility] Payment Agreement sheldon 03/14 10:57 ECG/EKG Chart Complete MTDD
--- NOTE | 2016-03-16 13:55 | EDDOCDS ---
Nurse's Notes [facility] Name: Maude Ward Age: 80 yrs Sex: Female : 1935 Arrival Date: 03/13/2016 Time: 15:53 Bed 18 Private MD: Unknown, Family Dr Diagnosis: Chronic obstructive pulmonary disease with acute lower respiratory infection Presentation: 03/13 16:06 Presenting complaint: Patient states: feeling sick - coughing productive cough, chest srm hurts when coughs. went to [facility] urgent care and sent here for r/o pneumonia. symptoms for Wednesday. Adult Sepsis Screening: The patient does not have new or worsening altered mentation. Patient has a respiratory rate of greater than or equal to 22 (1 point). Systolic blood pressure is greater than 100. Patient has a qSOFA score of 0- Negative Sepsis Screen. Suicide/Homicide risk assessment- the patient denies having any suicidal and/or homicidal ideations and does not present with any other emotional, behavioral or mental health complaints. Status: Patient is not a customer service clerk or dependent. Transition of care: Patient was received from [facility]. 16:06 Method Of Arrival: Walkin/Carried/[facility]std [facility] 16:06 Acuity: ANNABEL Level 3 srm Triage Assessment: 16:15 General: Appears in no apparent distress, Behavior is appropriate for age, cooperative. srm Pain: Pain currently is 0 out of 10 on a pain scale. At worst was 7 out of 10 on a pain scale. Respiratory: Onset: The symptoms/episode began/occurred gradually. Historical: - Allergies: No known drug Allergies; - Home Meds: 1. Spiriva with HandiHaler 18 mcg Inhl CpDv 1 cap once daily (Last dose: 03/12/2016 17:00) 2. Mucinex 600 mg oral Ta12 2 tabs every 12 hours (Last dose: 03/13/2016 11:00) 3. albuterol sulfate 2.5 mg /3 mL (0.083 %) Nebulizer nebu 4 times per day (Last dose: 03/13/2016 12:00) 4. Advair Diskus 250-50 mcg/dose Inhl dsdv 1 puff 2 times per day (Last dose: 03/13/2016 10:00) 5. atenolol 25 mg Oral tab bedtime (Last dose: 03/12/2016) 6. spironolactone 25 mg Oral tab 1 tab once daily (Last dose: 03/13/2016 11:00) 7. verapamil 80 mg Oral tab 1 tab 3 times per day (Last dose: 03/13/2016 10:00) 8. warfarin 5 mg Oral tab 1 tab once daily everyday but fri and sun 9. warfarin 2.5 mg Oral tab 1 tab once daily fri and sun 10. klor con20 three times a day (Last dose: 03/13/2016 10:00) 11. omeprazole 20 mg Oral cpDR 1 cap 2 times per day (Last dose: 03/13/2016 10:00) 12. torsemide 20 mg oral tab 2 tabs once daily (Last dose: 03/13/2016 10:00) 13. prevagen D 10MG daily (Last dose: 03/13/2016 10:00) - PMHx: afib; Emphysema; RIGHT LUNG CANCER; GERD; - PSHx: RIGHT LOBECTOMY; Cholecystectomy; Tonsillectomy; KNEE REPLACEMENT; - Social history: Smoking status: Patient states former smoker of tobacco. No barriers to communication noted, The patient speaks fluent Arabic, Speaks appropriately for age. - Family history: Not pertinent. - : The pt / caregiver states he / she is on anticoagulants: coumadin. Home medication list is obtained from the patient. - Exposure Risk Screening:: None identified. Screenin:18 Screening information is obtained from the patient. Fall risk: At risk due to age, gait jp6 disturbance. Assistance ADL's: requires no assistance with activities of daily living. Abuse/DV Screen: The patient / caregiver reports he/she is: not in a situation that causes fear, pain or injury. Nutritional screening: No deficits noted. home support is adequate. 20:18 Advance Directives: Currently, there is a health care proxy, SON Mynor Ward. There is jp6 no active DNR order. There is no living will. Assessment: 18:02 General: Appears in no apparent distress, comfortable, Behavior is appropriate for age, jmb cooperative, Patient laying on stretcher, appears comfortable. Son at bedside. No voiced complaints at this time. . Neurological: Level of Consciousness is awake, alert, obeys commands, Oriented to person, place, time, Speech is normal, Facial symmetry appears normal, Facial symmetry: tongue is midline. Respiratory: Airway is patent Respiratory effort is even, Respiratory pattern is regular. 20:21 Reassessment: Patient appears in no apparent distress at this time. Patient states jp6 symptoms have improved. General: Appears in no apparent distress, comfortable, well developed, well nourished, Behavior is appropriate for age, cooperative. Pain: Denies pain. Neurological: Level of Consciousness is awake, alert, Oriented to person, place, time. EENT: No deficits noted. Cardiovascular: Capillary refill < 3 seconds Rhythm is sinus tachycardia No ectopy. Respiratory: Airway is patent Respiratory effort is even, labored, Respiratory pattern is regular, symmetrical, Breath sounds with wheezes inspiratory expiratory bilaterally. GI: No deficits noted. Abdomen is flat, Bowel sounds present X 4 quads. : No deficits noted. Derm: Skin is intact, Skin is dry, Skin is flushed, Skin temperature is warm. Musculoskeletal: No deficits noted. 21:29 Reassessment: Patient appears in no apparent distress at this time. Pain: Denies pain. jp6 Cardiovascular: Rhythm is sinus tachycardia No ectopy. Respiratory: Airway is patent Respiratory effort is even, labored, Respiratory pattern is regular, symmetrical. Derm: Skin is flushed. Vital Signs: 15:55 BP 143 / 77; Pulse 112; Resp 20 S; Temp 101.0(O); Pulse Ox 95% on R/A; Weight 83.91 kg dd6 (R); Height 5 ft. 4 in. (162.56 cm) (R); 19:03 BP 126 / 62 (auto/); jp6 19:03 Pulse 120 MON; Pulse Ox 96% ; jp6 19:18 BP 122 / 64 (auto/); jp6 19:19 Pulse 122 MON; Pulse Ox 96% ; jp6 19:48 BP 122 / 67 (auto/); jp6 19:48 Pulse 114 MON; Pulse Ox 95% ; jp6 20:03 BP 110 / 58 (auto/); jp6 20:03 Pulse 114 MON; Pulse Ox 96% ; jp6 20:18 BP 131 / 89 (auto/); jp6 20:18 Pulse 120 MON; Pulse Ox 96% ; jp6 20:18 Resp 22; Temp 100.5(O); Pain 0/10; jp6 20:38 Pulse 112 MON; Pulse Ox 95% ; jp6 20:50 Pulse 114 MON; Pulse Ox 96% ; jp6 21:14 Pulse 110 MON; Pulse Ox 97% ; jp6 21:28 Pulse 110 MON; Pulse Ox 96% ; jp6 21:33 BP 122 / 66; Pulse 109; Resp 20; Temp 100.5; Pulse Ox 97% on 2 lpm NC; Pain 0/10; jp6 15:55 Body Mass Index 31.75 (83.91 kg, 162.56 cm) dd6 Vitals: 15:55 Log In Time: March 13, 2016 at 15:53. dd6 ED Course: 15:54 Patient visited by Prudencio Edmonds PCA. dd6 15:54 Patient moved to Waiting dd6 15:55 Unknown, Family Dr is Private Physician. dd6 15:56 Patient moved to Pre RCE dd6 16:07 Triage Initiated srm 16:22 Carl Carter, RN is Primary Nurse. srm 16:22 Patient moved to 18 srm 16:25 Patient visited by Lynnette Reyna PCA. jlf 16:34 Kerry Painting MD is Attending Physician. sd1 16:56 Patient visited by Kerry Painting MD. sd1 17:13 Patient visited by Lynnette Reyna PCA. jlf 17:13 EKG done. (by ED staff). Reviewed by Kerry Painting MD. jlf 17:49 -Blood Culture Sent. jmb 17:49 B-Type Natiuretic Peptide Sent. jmb 17:49 Basic Metabolic Profile Sent. jmb 17:49 CBC with Diff Sent. jmb 18:02 -Influenza A&B Rapid Antigen - Nose Sent. jmb 18:02 BLOOD CULTURES Sent. jmb 18:02 Lactic Acid (García tube on ice) Sent. jmb 18:03 Patient visited by Jose L Valera RN. jmb 18:07 EKG-ADULT Returned. EDMS 18:12 Chest, 2 View (pa\E\lat) Returned. EDMS 18:21 [facility] [place] was scanned into Richard Pauer - 3P and attached to record. gjb 18:28 Patient visited by Lynnette Reyna PCA. jlf 18:30 Patient name changed from Maude\S\\S\Walker\S\ to Maude\S\Mabel\S\Walker. EDMS 19:03 Primary Nurse role handed off by Carl Carter, RN jp6 19:03 Esperanza Lorenz,RN is Primary Nurse. jp6 19:16 Thu Anderson is Hospitalizing Provider. sd1 20:15 Side rails up X2. Door closed. Head of bed Elevated. Diet tray given. Diet:. jlm 20:16 Patient visited by Mica Glover, Promotions Officer. jlm 20:18 The patient / caregiver is instructed regarding the plan of care and ED course. Cardiac jp6 monitor on. Pulse ox on. NIBP on. 20:18 Inserted saline lock: 20 gauge in left antecubital area. No procedures done that jp6 require assistance. O2 via nasal cannula \T\ 2L/min. 20:27 -Arterial Blood Gas Sent. 3 03/14 10:57 ECG/EKG was scanned into Richard Pauer - 3P and attached to record. gb Administered Medications: 03/13 18:01 Drug: Acetaminophen 650 mg [acetaminophen 325 mg tablet (2 tabs)] Route: PO; jmb 18:05 Drug: Albuterol-Ipratropium 3 ml [ipratropium-albuterol 0.5 mg-3 mg(2.5 mg base)/3 mL jh6 nebulization soln (3 mL)] Route: Inhalation; 20:00 Drug: Solu-MEDROL 125 mg [Solu-Medrol 500 mg intravenous solution (125 mg)] Route: IVP; jp6 Site: left antecubital; 20:00 Drug: cefTRIAXone 1 grams [ceftriaxone 1 gram solution for injection] Route: IVPB; jp6 Infused Over: 30 mins; Site: left antecubital; 20:00 Drug: Furosemide 20 mg [furosemide 10 mg/mL injection solution (2 mL)] Route: IVP; jp6 Site: left antecubital; 21:34 Drug: azithromycin 500 mg [azithromycin 500 mg intravenous solution] Route: IVPB; kas2 Infused Over: 1 hrs; Site: left antecubital; RT: 18:05 Initial Med Neb Given as ordered Patient was instructed and evaluated on procedure jh6 Patient tolerated procedure well without adverse effect. Respiratory: Airway is patent Respiratory effort is even, unlabored, Respiratory pattern is regular symmetrical, Breath sounds with rhonchi in right upper lobe, left upper lobe and right middle lobe Breath sounds are diminished in right upper lobe, left upper lobe, right middle lobe, left lower lobe and right lower lobe Breath sounds with wheezes in right upper lobe, left upper lobe and right middle lobe at expiration Reports cough that is productive. 20:27 ABG's drawn from right radial artery pressure held for 5 minutes no bleeding noted jc3 pressure bandage applied specimen sent pt. tolerated well. Order Results: Lab Order: B-Type Natiuretic Peptide; SPEC'M 03/13/16 17:47 Test: BRAIN NATRIURETIC PEPTIDE; Value: 708; Range: <100; Abnormal: Above high normal; Units: PG/ML; Status: F Lab Order: Basic Metabolic Profile; SPEC'M 03/13/16 17:47 Test: GLUCOSE, FASTING; Value: 113; Range: 83-110; Abnormal: Above high normal; Units: MG/DL; Status: F Test: BLOOD UREA NITROGEN; Value: 17; Range: 7-18; Units: MG/DL; Status: F Test: CREATININE FOR GFR; Value: 1.41; Range: 0.55-1.02; Abnormal: Above high normal; Units: MG/DL; Status: F Test: GLOMERULAR FILTRATION RATE; Value: 38.0; Range: >32; Status: F Test: SODIUM LEVEL; Value: 134; Range: 136-145; Abnormal: Below low normal; Units: MEQ/L; Status: F Test: POTASSIUM SERUM; Value: 4.1; Range: 3.5-5.1; Units: MEQ/L; Status: F Test: CHLORIDE LEVEL; Value: 97; Range: 98-107; Abnormal: Below low normal; Units: MEQ/L; Status: F Test: CARBON DIOXIDE LEVEL; Value: 28; Range: 21-32; Units: MEQ/L; Status: F Test: ANION GAP; Value: 9; Range: 8-16; Units: MEQ/L; Status: F Test: CALCIUM LEVEL; Value: 9.2; Range: 8.8-10.2; Units: MG/DL; Status: F Test Note: ; Units are mL/min/1.73 m2 Chronic Kidney Disease Staging per NKF: Stage I & II GFR >=60 Normal to Mildly Decreased Stage III GFR 30-59 Moderately Decreased Stage IV GFR 15-29 Severely Decreased Stage V GFR <15 Very Little GFR Left ESRD GFR <15 on CIVIL CAD DESIGNER Lab Order: CBC with Diff; SPEC'M 03/13/16 17:47 Test: WHITE BLOOD COUNT; Value: 7.9; Range: 4.0-10.0; Units: K/mm3; Status: F Test: RED BLOOD COUNT; Value: 4.50; Range: 4.00-5.40; Units: M/mm3; Status: F Test: HEMOGLOBIN; Value: 13.8; Range: 12.0-16.0; Units: g/dl; Status: F Test: HEMATOCRIT; Value: 40.3; Range: 36.0-47.0; Units: %; Status: F Test: MEAN CORPUSCULAR VOLUME; Value: 89.6; Range: 80.0-96.0; Units: fl; Status: F Test: MEAN CORPUSCULAR HEMOGLOBIN; Value: 30.7; Range: 27.0-33.0; Units: pg; Status: F Test: MEAN CORPUSCULAR HGB CONC; Value: 34.2; Range: 32.0-36.5; Units: g/dl; Status: F Test: RED CELL DISTRIBUTION WIDTH; Value: 13.1; Range: 11.5-14.5; Units: %; Status: F Test: PLATELET COUNT, AUTOMATED; Value: 189; Range: 150-450; Units: k/mm3; Status: F Test: NEUTROPHILS %; Value: 84.3; Range: 36.0-66.0; Abnormal: Above high normal; Units: %; Status: F Test: LYMPH %; Value: 6.2; Range: 24.0-44.0; Abnormal: Below low normal; Units: %; Status: F Test: MONO %; Value: 5.1; Range: 0.0-5.0; Abnormal: Above high normal; Units: %; Status: F Test: EOS %; Value: 0.4; Range: 0.0-3.0; Units: %; Status: F Test: BASO %; Value: 0.2; Range: 0.0-1.0; Units: %; Status: F Test: LARGE UNSTAINED CELL %; Value: 3.8; Range: 0.0-4.0; Units: %; Status: F Test: NEUTROPHILS #; Value: 6.7; Range: 1.8-7.7; Units: K/mm3; Status: F Test: LYMPH #; Value: 0.5; Range: 1.5-4.5; Abnormal: Below low normal; Units: K/mm3; Status: F Test: MONO #; Value: 0.4; Range: 0.0-0.8; Units: K/mm3; Status: F Test: EOS #; Value: 0.0; Range: 0.0-0.50; Units: K/mm3; Status: F Test: BASO #; Value: 0.0; Range: 0.0-0.2; Units: K/mm3; Status: F Test: LARGE UNSTAINED CELL #; Value: 0.3; Range: 0.0-0.4; Units: K/mm3; Status: F Lab Order: Lactic Acid (García tube on ice); SPEC'M 03/13/16 17:58 Test: LACTIC ACID LEVEL, LACTATE; Value: 1.0; Range: 0.4-2.0; Units: MMOL/L; Status: F Lab Order: -Influenza A&B Rapid Antigen - Nose; SPEC'M 03/13/16 17:58 Test: INFLUENZA A RAPID SCR by ICA; Value: INFLUENZA A RESULTS NEGATIVE; Status: F Test: INFLUENZA A RAPID SCR by ICA; Value: Comments:; Status: F Test: INFLUENZA B RAPID SCR by ICA; Value: INFLUENZA B RESULTS NEGATIVE; Status: F Test Note: ; The Influenza test is a direct rapid immunoassay for the qualitative detection of Influenza viral antigen. Cell culture (Viral Culture) testing should be considered to confirm NEGATIVE results and to assist in detecting other viruses that can provide similar clinical symptoms. Please contact the lab within 24 hours ([phone] if confirmatory testing is desired. Lab Order: -Arterial Blood Gas; SPEC'M 03/13/16 20:24 Test: ABG pH (ARTERIAL); Value: 7.483; Range: 7.350-7.450; Abnormal: Above high normal; Units: UNITS; Status: F Test: ABG PARTIAL PRESSURE CO2; Value: 32.4; Range: 35.0-45.0; Abnormal: Below low normal; Units: mmHg; Status: F Test: ABG PARTIAL PRESSURE O2; Value: 133.5; Range: 75.0-100.0; Abnormal: Above high normal; Units: mmHg; Status: F Test: ABG TOTAL CO2; Value: 24.7; Range: 23.0-31.0; Units: MEQ/L; Status: F Test: ABG HCO3; Value: 23.8; Range: 22.0-26.0; Units: MEQ/L; Status: F Test: ABG BASE EXCESS; Value: 1.0; Range: -2.0-2.0; Status: F Test: ABG STANDARD HCO3; Value: 25.4; Range: 22.0-26.0; Units: MEQ/L; Status: F Test: ABG O2 SATURATION; Value: 99.0; Range: 95.0-99.0; Units: %; Status: F Test: ABG DEVICE; Value: NASAL CHANI; Status: F Test Note: ; AIR BUBBLE AT TOP OF SYRINGE Radiology Order: Chest, 2 View (pa\E\lat) Test: Chest, 2 View (pa\E\lat) REASON FOR EXAMINATION: Cough; Clinical: Cough.; ; Technique: PA and lateral.; ; Comparison: None.; ; Findings:; Diffuse chronic interstitial changes with fibrosis and scarring noted; bilaterally. Subtle nodular density in the left mid lung zone cannot be; excluded. Underlying atelectasis cannot be excluded. No effusion or; pneumothorax. Cardiac silhouette is normal. Surgical clips noted in the middle; mediastinum. Skeletal structures intact.; ; Impression:; Diffuse chronic-appearing interstitial changes with fibrosis and scarring.; Subtle left mid lung opacities.; No prior exams for comparison and chest CT should be considered for further; investigation.; ; ; Signed by; Marcelino Arnold MD 03/13/2016 05:27 P; Radiology Order: EKG-ADULT Test: EKG-ADULT REASON FOR EXAMINATION: Cough; Stationary ECG Study; [facility] - ED; ; Test Date: 2016-03-13; Pat Name: MAUDE WARD Department:; Room: -; Gender: F Regulatory Compliance Manager:; : 1935 Requested By: Kerry Painting; Order Number: [id number] Reading MD: Antonino Lowe; Measurements; Intervals Lorane; Rate: 119 P:; UT: 0 QRS: 90; QRSD: 104 T: -81; QT: 280; QTc: 395; Interpretive Statements; ATRIAL FIBRILLATION WITH RAPID VENTRICULAR RESPONSE; INCOMPLETE RIGHT BUNDLE BRANCH BLOCK; ST DEVIATION AND MODERATE T-WAVE ABNORMALITY, CONSIDER ANTERIOR ISCHEMIA; NO PRIORS; Electronically Signed On 03-13-2016 17:22:04 EST by Antonino Lowe; Outcome: 19:16 Decision to Hospitalize by Provider. sd1 21:32 Discharge Assessment: Patient awake, alert and oriented x 3. No cognitive and/or jp6 functional deficits noted. Patient verbalized understanding of disposition instructions. patient administered narcotics - no. The following High Risk Discharge criteria are identified: None. Admitted to PCU accompanied by nurse, accompanied by tech, via stretcher, with oxygen, on monitor, with chart. Condition: unchanged. No special radiology studies were completed. Property :Personal belongings accompany Pt. 22:32 Patient left the ED. 6 Signatures: Dispatcher MedHost EDKerry Irving MD MD sd1 Arleth Milligan, RN RN [facility] Rona Castillo, Reg Reg Keron Davalos jc3 Prudencio Edmonds, ART INSTALLER ART INSTALLER dd6 Jimmie Negron6 Jose L Valera,RN RN Lynnette Farley, ART INSTALLER ART INSTALLER jlf Mica Glover, Promotions Officer Unit Karlene Craig Kim,RN RN kas2 Esperanza Lorenz,RN RN jp6 Corrections: (The following items were deleted from the chart) 20:20 17:49 BLOOD CULTURES sent. miller OLIVARESMN Chart Complete MTDD
--- NOTE | 2016-03-16 13:55 | EDDOCDS ---
Physician Documentation [facility] Name: Maude Ward Age: 80 yrs Sex: Female : 1935 Arrival Date: 03/13/2016 Time: 15:53 Bed 18 Private MD: Unknown, Family Dr Disposition: 03/13/16 19:16 Hospitalization ordered by Thu Anderson for Inpatient Admission. Preliminary diagnosis is Chronic obstructive pulmonary disease with acute lower respiratory infection. - [facility] - Status is Inpatient Admission. jp6 - Condition is Stable. - Problem is new. - Symptoms are unchanged. Historical: - Allergies: No known drug Allergies; - Home Meds: 1. Spiriva with HandiHaler 18 mcg Inhl CpDv 1 cap once daily (Last dose: 03/12/2016 17:00) 2. Mucinex 600 mg oral Ta12 2 tabs every 12 hours (Last dose: 03/13/2016 11:00) 3. albuterol sulfate 2.5 mg /3 mL (0.083 %) Nebulizer nebu 4 times per day (Last dose: 03/13/2016 12:00) 4. Advair Diskus 250-50 mcg/dose Inhl dsdv 1 puff 2 times per day (Last dose: 03/13/2016 10:00) 5. atenolol 25 mg Oral tab bedtime (Last dose: 03/12/2016) 6. spironolactone 25 mg Oral tab 1 tab once daily (Last dose: 03/13/2016 11:00) 7. verapamil 80 mg Oral tab 1 tab 3 times per day (Last dose: 03/13/2016 10:00) 8. warfarin 5 mg Oral tab 1 tab once daily everyday but fri and sun 9. warfarin 2.5 mg Oral tab 1 tab once daily fri and sun 10. klor con20 three times a day (Last dose: 03/13/2016 10:00) 11. omeprazole 20 mg Oral cpDR 1 cap 2 times per day (Last dose: 03/13/2016 10:00) 12. torsemide 20 mg oral tab 2 tabs once daily (Last dose: 03/13/2016 10:00) 13. prevagen D 10MG daily (Last dose: 03/13/2016 10:00) - PMHx: afib; Emphysema; RIGHT LUNG CANCER; GERD; - PSHx: RIGHT LOBECTOMY; Cholecystectomy; Tonsillectomy; KNEE REPLACEMENT; - Social history: Smoking status: Patient states former smoker of tobacco. No barriers to communication noted, The patient speaks fluent [place] Citizen, Speaks appropriately for age. - Family history: Not pertinent. - : The pt / caregiver states he / she is on anticoagulants: coumadin. Home medication list is obtained from the patient. - Exposure Risk Screening:: None identified. Vital Signs: 03/13 15:55 BP 143 / 77; Pulse 112; Resp 20 S; Temp 101.0(O); Pulse Ox 95% on R/A; Weight 83.91 kg dd6 / 184.99 lbs (R); Height 5 ft. 4 in. (162.56 cm) (R); 19:03 BP 126 / 62 (auto/); jp6 19:03 Pulse 120 MON; Pulse Ox 96% ; jp6 19:18 BP 122 / 64 (auto/); jp6 19:19 Pulse 122 MON; Pulse Ox 96% ; jp6 19:48 BP 122 / 67 (auto/); jp6 19:48 Pulse 114 MON; Pulse Ox 95% ; jp6 20:03 BP 110 / 58 (auto/); jp6 20:03 Pulse 114 MON; Pulse Ox 96% ; jp6 20:18 BP 131 / 89 (auto/); jp6 20:18 Pulse 120 MON; Pulse Ox 96% ; jp6 20:18 Resp 22; Temp 100.5(O); Pain 0/10; jp6 20:38 Pulse 112 MON; Pulse Ox 95% ; jp6 20:50 Pulse 114 MON; Pulse Ox 96% ; jp6 21:14 Pulse 110 MON; Pulse Ox 97% ; jp6 21:28 Pulse 110 MON; Pulse Ox 96% ; jp6 21:33 BP 122 / 66; Pulse 109; Resp 20; Temp 100.5; Pulse Ox 97% on 2 lpm NC; Pain 0/10; jp6 15:55 Body Mass Index 31.75 (83.91 kg, 162.56 cm) dd6 MDM: 17:03 -Blood Culture (Adults Only), peripheral from different site, or from device/port/PICC sd1 etc. if present ordered. 17:03 Paragliding Instructor/Pulse Ox/q 15 min VS ordered. sd1 17:03 IV Saline Lock ordered. sd1 17:03 Oxygen at 4L/Min NC or Home dosage ordered. sd1 17:03 Rhythm Strip to chart ordered. sd1 17:04 -Blood Culture Ordered. EDMS 17:04 B-Type Natiuretic Peptide Ordered. EDMS 17:04 Basic Metabolic Profile Ordered. EDMS 17:04 CBC with Diff Ordered. EDMS 17:04 Lactic Acid (García tube on ice) Ordered. EDMS 17:05 ECG WITH READING ER PHYS+CARDIAG ordered. EDMS 17:06 -Blood Culture (Adults Only), peripheral from different site, or from device/port/PICC lbd etc. if present complete. 17:06 Chest, 2 View (pa\E\lat) Ordered. EDMS 17:09 BLOOD CULTURES Ordered. EDMS 17:15 Acetaminophen Tablet 650 mg PO once ordered. sd1 17:17 -Influenza A&B Rapid Antigen - Nose Ordered. EDMS 17:44 Albuterol-Ipratropium 3 ml Inhalation once ordered. sd1 17:44 Call Respiratory ordered. sd1 17:45 Call Respiratory complete. lbd 18:15 CBC with Diff Reviewed. sd1 18:15 Chest, 2 View (pa\E\lat) Reviewed. sd1 18:15 EKG-ADULT Reviewed. sd1 18:21 [facility] Payment Agreement was scanned into K[employer] and attached to record. gjb 18:21 Financial registration complete. gjb 18:58 B-Type Natiuretic Peptide Reviewed. sd1 18:58 Basic Metabolic Profile Reviewed. sd1 18:58 Lactic Acid (García tube on ice) Reviewed. sd1 18:58 -Influenza A&B Rapid Antigen - Nose Reviewed. sd1 19:04 Solu-MEDROL 125 mg IVP once ordered. sd1 19:04 cefTRIAXone 1 grams IVPB once over 30 mins; dilute in 50mL of NS or D5W ordered. sd1 19:05 azithromycin 500 mg IVPB once over 1 hrs; dilute in 250mL of D5W or NS ordered. sd1 19:05 Misc. Nursing Order ordered. sd1 19:12 Furosemide 20 mg IVP once ordered. sd1 19:13 BED REQUEST+ADM ordered. EDMS 19:15 Call Respiratory ordered. sd1 19:17 -Arterial Blood Gas Ordered. EDMS 19:28 Admission / Observation Status ordered. EDMS 19:28 OTHER CUSTOM DIETS ordered. EDMS 19:32 CBC WITH DIFFERENTIAL Ordered. EDMS 19:33 BASIC METABOLIC PROFILE Ordered. EDMS 19:47 Call Respiratory complete. tmm1 20:15 PROTHROMBIN TIME PROFILE\E\INR Ordered. EDMS 03/14 10:57 ECG/EKG was scanned into MEDHOST and attached to record. gb Administered Medications: 03/13 18:01 Drug: Acetaminophen 650 mg [acetaminophen 325 mg tablet (2 tabs)] Route: PO; b 18:05 Drug: Albuterol-Ipratropium 3 ml [ipratropium-albuterol 0.5 mg-3 mg(2.5 mg base)/3 mL jh6 nebulization soln (3 mL)] Route: Inhalation; 20:00 Drug: Solu-MEDROL 125 mg [Solu-Medrol 500 mg intravenous solution (125 mg)] Route: IVP; jp6 Site: left antecubital; 20:00 Drug: cefTRIAXone 1 grams [ceftriaxone 1 gram solution for injection] Route: IVPB; jp6 Infused Over: 30 mins; Site: left antecubital; 20:00 Drug: Furosemide 20 mg [furosemide 10 mg/mL injection solution (2 mL)] Route: IVP; jp6 Site: left antecubital; 21:34 Drug: azithromycin 500 mg [azithromycin 500 mg intravenous solution] Route: IVPB; kas2 Infused Over: 1 hrs; Site: left antecubital; Signatures: Dispatcher [employer] EDRI Kerry Painting MD MD sd1 Daly, Linda, General Farm Manager Unit lbd Arleth Milligan RN RN [facility], LALITA Ortiz RN, Gloria, Reg Reg gb McLear, Tomasa, SOX ANALYST SOX ANALYST tmm1 Karlene Patel Jessica, RN RN jp6 Jimmie Negron Joshua RN jmb Smith, Kim RN kas2 The chart was reviewed and I authenticate all verbal orders and agree with the evaluation and treatment provided.Corrections: (The following items were deleted from the chart) 20:20 17:09 BLOOD CULTURES ordered. EDRI EDMS Attachments: 18:21 [facility] Payment Agreement sheldon 03/14 10:57 ECG/EKG Chart Complete MTDD
--- NOTE | 2016-03-16 14:06 | DS.PDOC ---
Discharge Summary General Date of Admission Mar 13, 2016 at 19:17 Date of Discharge Mar 16, 2016 at 12:52 Discharge Summary PROCEDURES PERFORMED DURING STAY: None. COMPLICATIONS/CHIEF COMPLAINT: A-Fib W/Rvr; Copd Exacerbation ADMISSION DIAGNOSES: 1. . Community acquired pneumonia 2. . COPD on home oxygen 3. . DISCHARGE DIAGNOSES: 1. . Coronary acquired pneumonia 2. . COPD on home oxygen 3. . HISTORY OF PRESENT ILLNESS: 80-year-old female from the [facility] with past medical history of COPD on home oxygen, chronic hypoxic respiratory failure, atrial fibrillation on Coumadin, GERD, history of right-sided lung cancer in 2006 status post resection and chemotherapy, hypertension, and chronic leg edema presents to the hospital with a chief complaint of increased chest congestion, cough, and shortness of breath for 2 days. The patient states that she came up to the area about 5 days ago and noticed that she had been feeling increased cough and dyspnea on exertion with nasal discharge over the last 3 days. In the ER, the patient was noted to be febrile with a temperature of 101F. In addition the patient was noted to be in atrial fibrillation with a rapid regular ventricular response rate of 112. Chest x-ray done showed chronic interstitial changes with fibrosis and scarring and subtle left mid lung opacities. The patient was admitted to the hospitalist service for COPD exacerbation and community-acquired pneumonia. During the patient's hospital stay here he was treated with IV antibiotics and fckxir-nny-tgrif nebulizer treatments. Over the last 48 hours the patient's respiratory status has improved considerably. She has been transitioned to by mouth antibiotics at this time. Of note the patient was noted to have a serum creatinine level of 1.6 on admission and this has drifted downward towards 1.3. However, we do not have a baseline serum creatinine for this patient and do not know if she has underlying kidney disease. An attempt was made to obtain records from her outpatient primary care for provider in the [facility]. However, given that it was the weekend the primary care physician's offices were closed and we were unable to obtain these records. I have advised the patient to follow-up with her primary care physician for further workup and follow-up of these lab findings. In addition, the patient was seen by physical therapy and was cleared for discharge home. DISCHARGE MEDICATIONS: Please see below. ALLERGIES: Please see below. PHYSICAL EXAMINATION ON DISCHARGE: VITAL SIGNS: Please see below. GENERAL: Awake, alert, oriented HEENT: Normocephalic, atraumatic NECK: No JVD CARDIOVASCULAR EXAMINATION: Normal rate, normal S1, S2 RESPIRATORY EXAMINATION: Diminished breath sounds bilaterally, with faint wheezing noted in the left lower lobe ABDOMINAL EXAMINATION: Soft, nontender, nondistended EXTREMITIES: No erythema, no tenderness LABORATORY DATA: Please see below. IMAGING: Clinical: Cough. Technique: PA and lateral. Comparison: None. Findings: Diffuse chronic interstitial changes with fibrosis and scarring noted bilaterally. Subtle nodular density in the left mid lung zone cannot be excluded. Underlying atelectasis cannot be excluded. No effusion or pneumothorax. Cardiac silhouette is normal. Surgical clips noted in the middle mediastinum. Skeletal structures intact. Impression: Diffuse chronic-appearing interstitial changes with fibrosis and scarring. Subtle left mid lung opacities. No prior exams for comparison and chest CT should be considered for further investigation. VTE Prophylaxis ordered?: On Coumadin DISCHARGE CONDITION: Medically stable DISPOSITION: 01 Home, Self-Care ACTIVITY: As tolerated DIET: 2 g low sodium diet ITEMS TO FOLLOWUP ON OUTPATIENT: 1. . Follow-up with primary care physician within one to 2 weeks TIME SPENT ON DISCHARGE: Greater than 30 minutes. Vital Signs/I&Os Vital Signs Date Time Temp Pulse Resp B/P Pulse Ox O2 Delivery O2 Flow Rate FiO2 03/16/16 12:00 97.4 98 20 125/73 93 03/16/16 08:00 Nasal Cannula 2.0 I&O- Last 24 Hours up to 6 AM 03/16/16 05:59 Intake Total 1310 ml Output Total 1600 ml Balance -290 ml Laboratory Data Labs 24H Laboratory Tests 2 03/16/16 05:05: Anion Gap 9, White Blood Count 8.1, Red Blood Count 4.03, Hemoglobin 12.4, Hematocrit 35.8L, Mean Corpuscular Volume 88.8, Mean Corpuscular Hemoglobin 30.6 , Mean Corpuscular Hemoglobin Concent 34.5, Red Cell Distribution Width 13.0, Platelet Count 192, Neutrophils (%) (Auto) 71.2H, Lymphocytes (%) (Auto) 15.8L, Monocytes (%) (Auto) 7.6H, Eosinophils (%) (Auto) 0.9, Basophils (%) (Auto) 0.2 , Neutrophils # (Auto) 5.7, Lymphocytes # (Auto) 1.3L, Monocytes # (Auto) 0.6, Eosinophils # (Auto) 0.1, Basophils # (Auto) 0.0, Blood Urea Nitrogen 25H, Creatinine 1.36H, Sodium Level 136, Potassium Level 3.2L, Chloride Level 99, Carbon Dioxide Level 28, Calcium Level 8.3L, Glomerular Filtration Rate 39.6, Large Unclassified Cells # 0.4, Large Unclassified Cells % 4.4H, Prothromb Time International Ratio 2.13, Prothrombin Time 23.9H CBC/BMP Laboratory Tests 03/16/16 05:05 Calcium Level 8.3 L, Red Blood Count 4.03, Mean Corpuscular Volume 88.8, Mean Corpuscular Hemoglobin 30.6, Mean Corpuscular Hemoglobin Concent 34.5, Red Cell Distribution Width 13.0, Neutrophils (%) (Auto) 71.2 H, Lymphocytes (%) (Auto) 15.8 L, Monocytes (%) (Auto) 7.6 H, Eosinophils (%) (Auto) 0.9, Basophils (%) ( Auto) 0.2, Neutrophils # (Auto) 5.7, Lymphocytes # (Auto) 1.3 L, Monocytes # ( Auto) 0.6, Eosinophils # (Auto) 0.1, Basophils # (Auto) 0.0 Microbiology Microbiology 03/13/16 Blood Culture - Preliminary, Resulted No Growth after 48 hours. All Specime... 03/13/16 Blood Culture - Preliminary, Resulted No Growth after 48 hours. All Specime... 03/13/16 Influenza Virus Type A Antigen - Final, Complete 03/13/16 Influenza Virus Type B Antigen - Final, Complete Medications Scheduled (Prevagen) 10 Mg Cap 10 MG PO DAILY (B Complex) 1 Tab Tab 1 TAB PO DAILY (Doxycycline) 100 Mg Cap 100 MG PO BID Ascorbic Acid (Ascorbic Acid) 500 Mg Tab 500 MG PO DAILY Atenolol (Atenolol) 25 Mg Tab 25 MG PO QHS Cholecalciferol (Vitamin D3) 1,000 Unit Tab 1,000 UNIT PO DAILY Guaifenesin (Guaifenesin ER) 600 Mg Tab 600 MG PO Q12H Multivitamins *[facility] STOCKED* (Thera M Plus *[facility] STOCKED*) 1 Tab Tab 1 TAB PO DAILY Omeprazole (Omeprazole) 20 Mg Cap 20 MG PO BID Potassium Chloride (Klor-Con M20) 20 Meq Tabcr 20 MEQ PO TID Salmeterol/Fluticasone (Advair Diskus 250-50 Mcg/Dose) 14 Puff/Inhaler Aerp 1 PUFF INH BID Selenium (Cvs Selenium) 200 Mcg Tab 200 MCG PO DAILY Spironolactone (Spironolactone) 25 Mg Tab 25 MG PO 3XW MON,WED,FRI Tiotropium [employer] Monohydrate (Spiriva Handihaler) 18 Mcg Cap 1 INHALATION INH DAILY Torsemide (Torsemide) 20 Mg Tab 20 MG PO DAILY Verapamil HCl (Verapamil HCl) 80 Mg Tab 80 MG PO TID Warfarin Sod (Coumadin) 5 Mg Tab 5 MG PO 5XW MON,,WED,,SAT Warfarin Sod (Coumadin) 2.5 Mg Tab 2.5 MG PO 2XW FRI, SUN Scheduled PRN Albuterol Sulfate (Albuterol Sulfate) 2.5 Mg/3 Ml Nebu 2.5 MG INH QID PRN PRN SHORTNESS OF BREATH Allergies Coded Allergies: No Known Allergies (Unverified , 03/13/16) VIMAL AMANDA MD Mar 16, 2016 14:06
== END 2016-03-16 12:52 | disposition home or self-care (01) | DRG 139 ==
LOC: M ED 15:53 → M ED INP 19:17 → M PCU 22:40
PROVIDERS: ADMIT Internal Medicine Nephrology; ATTEND Internal Medicine
DX: J18.9 Pneumonia, unspecified organism (principal); J96.11 Chronic respiratory failure with hypoxia; J84.10 Pulmonary fibrosis, unspecified; Z99.81 Dependence on supplemental oxygen; J44.9 Chronic obstructive pulmonary disease, unspecified; I48.91 Unspecified atrial fibrillation; Z79.01 Long term (current) use of anticoagulants; I10 Essential (primary) hypertension; K21.9 Gastro-esophageal reflux disease without esophagitis; Z85.118 Personal history of other malignant neoplasm of bronchus and lung; Z79.899 Other long term (current) drug therapy; Z87.891 Personal history of nicotine dependence; Z96.652 Presence of left artificial knee joint